=== PATIENT | female | born 1950 | race Caucasian/White ===

== ENCOUNTER 2018-04-27 10:27 | Inpatient (IN) | payer OTHER ==
--- OUTSIDE RECORDS SUMMARY | 2018-04-27 10:29 | XMS REPORT | Continuity of Care Document ---
:1950 Author Organization Interface Problems Problem Status Onset Classification Date Comments Source Date Reported Rectal Active 04/01/20 Problem 08/26/2017 Data Medical polyp<sup>1</zhang 15 migrated Group p> from [employer] on 04/21/15. UNK Active 03/29/20 [facility] [place] 787.99 Active 03/29/[address] Smoking Active 03/26/20 Problem 08/26/2017 Data Medical cessation 15 migrated Group education<sup>2 from [employer] </sup> [facility] on 04/21/15. Asthma Resolved Problem 08/26/2017 Medical Group COPD Active Problem 08/26/2017 Medical Group,[facility] Degenerative Active Problem 08/26/2017 Medical disc disease Group,[facility] Hypertension Active Problem 08/26/2017 Medical Group,[facility] Rectal mass Active Problem 08/26/2017 Medical Group,[facility] DIGESTVE SYST Active SYMP NEC [facility] Medications Medication Details Route Status Patient Ordering Order Source Instructions Provider Date Oxycodone 5 mg, Route: PO, Inactive Hydrochloride 5 Drug form: TAB, 2014 MG Oral Tablet ONCE, Dosing Weight 50, kg, Start date: 04/02/15 16:42:00, Stop date: 04/02/15 16:42:00 Xopenex 0.63 mg, 3 mL, No Longer Route: NEB, Drug Active 2014 form: SOLN, PRN, Dosing Weight 50, kg, PRN Respiratory Protocol, Start date: 04/02/15 15:37:00, Duration: 30 day, Stop date: 05/02/15 15:36:00Notes: SEE RT DOCUMENTATION (Same as:Xopenex) Non-Formulary Reglan 10 mg, Route: Inactive IVP, Drug form: 2014 INJ, ONCE, Dosing Weight 50, kg, Start date: 04/02/15 14:34:00, Stop date: 04/02/15 14:34:00 Acetaminophen 1 tab, Route: Inactive 325 MG / PO, Drug Form: 2014 [facility] Hydrocodone TAB, kg, Q6H, Bitartrate 10 MG PRN Pain, Start Oral Tablet date: 04/02/15 [[place] [address]] 14:06:00, Duration: 30 day, Stop date: 05/02/15 14:05:00 Ofirmev 1,000 mg, Route: Inactive IV, Drug form: 2014 [facility] INJ, ONCE, kg, PRN Pain, for > or=50 kg, Start date: 04/02/15 14:06:00 Naloxone 0.04 mg, Route: Inactive IVP, Q2MIN, 2014 [facility] Dosing Weight 50, kg, PRN Narcotic Reversal, Start date: 04/02/15 14:06:00, Duration: 8 doses or times, Stop date: Limited # of times Fentanyl 50 microgram, Inactive Route: IVP, 2014 [facility] Q5Min, Dosing Weight 50, kg, PRN Pain Score 7-10, Start date: 04/02/15 14:06:00, Duration: 2 doses or times, Stop date: Limited # of times Ketorolac 30 mg, Route: Inactive IVP, ONCE, 2014 [facility] Dosing Weight 50, kg, Start date: 04/02/15 14:06:00, Duration: 1 doses or times, Stop date: 04/02/15 14:06:00 Flumazenil 0.2 mg, Route: Inactive IVP, PRN, Dosing 2014 [facility] Weight 50, kg, PRN Benzodiazepine Reversal, Initial dose, Start date: 04/02/15 14:06:00, Duration: 30 day, Stop date: 05/02/15 14:05:00 Ondansetron 4 mg, Route: Inactive IVP, ONCE, 2014 [facility] Dosing Weight 50, kg, PRN Nausea & Vomiting, Start date: 04/02/15 14:06:00 Hydromorphone 0.3 mg, 0.3 mL, No Longer Route: IVP, Drug Active 2014 [facility] form: INJ, Q3H, Dosing Weight 50, kg, PRN Pain Score 4-6, Start date: 04/02/15 13:37:00, Duration: 30 day, Stop date: 05/02/15 13:36:00 Calcium Chloride 500 mL, Rate: 25 Inactive 0.0014 MEQ/ML / ml/hr, Infuse 2014 [facility] Potassium over: 20 hr, Chloride 0.004 Route: IV, MEQ/ML / Sodium Dosing Weight 50 Chloride 0.103 kg, Total MEQ/ML / Sodium Volume: 500, Lactate 0.028 Start date: MEQ/ML 04/02/15 Injectable 11:44:00, Solution Duration: 30 day, Stop date: 05/02/15 11:43:00 Metronidazole =500 mg, PO, Active 500 MG Oral Q8H, # 21 btl, 0 2014 Tablet [Flagyl] Refill(s) Acetaminophen 1 tab, PO, Q6H, Active 300 MG / Codeine PRN for pain, # 2014 Phosphate 30 MG 30 tab, 0 Oral Tablet Refill(s) [Tylenol with Codeine #3] Flonase 0.05 2 spray, NASAL, Active [facility] mg/inh nasal BID, # 16 gm, 0 2014 spray Refill(s) levocetirizine 5 5 mg=1 tab, PO, Active 04/02/ MH mg oral tablet QPM, # 30 tab, 1 2014 Refill(s) levocetirizine 5 5 mg=1 tab, PO, Active 04/02/ [facility] mg oral tablet QPM, # 30 tab, 1 2014 Refill(s) montelukast 10 10 mg=1 tab, PO, Active MH MG Oral Tablet Bedtime, # 30 2014 [Singulair] tab, 1 Refill(s) Roflumilast 0.5 500 microgram=1 Active 04/02/ MH MG Oral Tablet tab, PO, Daily, 2014 [Daliresp] 0 Refill(s) lisinopril 20 mg 20 mg=1 tab, PO, Active MH oral tablet Daily, # 90 tab, 2014 0 Refill(s) Symbicort 2 puff, Active 160/4.5 INHALATION, BID, 2014 inhalation # 10.2 gm, 0 aerosol with Refill(s) adapter tiotropium 0.018 18 microgram=1 Active 04/02[facility] MG/ACTUAT cap, INHALATION, 2014 [facility] Inhalant Powder Daily, Use two [Spiriva] inhalations of one capsule for each dose, # 90 cap, 1 Refill(s)Special Instructions: Use two inhalations of one capsule for each dose Flagyl 500 mg, 100 mL, Inactive Route: IVPB, 2014 [facility] Drug form: INJ, ONCE, kg, Start date: 04/02/15 9:25:00, Stop date: 04/02/15 9:25:00 Allergies, Adverse Reactions, Alerts Substance Category Reaction Severity Reaction Status Date Comments Source type Reported penicillins< Assertion Drug Active Data sup>1</sup> allergy 5 migrated Medical from [facility] on 04/16/15. Originally documented as PENICILLIN. macrolide Assertion Drug Active Data antibiotics< allergy 5 migrated Medical sup>2</sup> from [facility] on 04/16/15. Originally documented as MYCIN. tetracycline Assertion Drug Active Data s<sup>3</sup allergy 5 migrated Medical > from [facility] on 04/16/15. Originally documented as CYCLINES. cephalexin<s Assertion Drug Active Data up>4</sup> allergy 5 migrated Medical from [facility] on 04/17/15. Originally documented as KEFLEX. Keflex Assertion Drug Active allergy Medical Group E-Mycin Assertion Drug Active allergy [facility] penicillins Assertion Drug Active allergy [facility] tetracycline Assertion Drug Active s allergy [facility] Immunizations Immunization Date Given Site Status Last Updated Comments Source Results Order Name Results Value Reference Date Interpretation Comments Source Range CHEM PANEL Creatinine 0.7 mg/dL 0.5 - 1.4 04/02 [facility] CHEM PANEL Sodium Lvl 143 meq/L 135 - 145 04/02 [facility] CHEM PANEL Potassium 4.6 meq/L 3.5 - 5.1 04/02 [facility] CHEM PANEL eGFR 91 04/02 Result Comment: The eGFR is calculated using the CKD-EPI formula. In most young, healthy individuals the eGFR will be >90 mL/ min/1.73m2. The eGFR declines with age. An eGFR of 60-89 may be normal in MH mL/min/1.7 some populations, particularly the elderly, for whom the CKD-EPI formula has not been extensively validated. Use of the eGFR is not recommended in the following populations: [facility] 3m2 Individuals with unstable creatinine concentrations, including patients and those with serious co-morbid conditions. Patients with extremes in muscle mass or diet. The data above are obtained from the National Kidney Disease Education Program (NKDEP) which additionally recommends that when the eGFR is used in patients with extremes of body mass index for purposes of drug dosing, the eGFR should be multiplied by the estimated BMI. CHEM PANEL Calcium Lvl 8.9 mg/dL 8.5 - 10.5 04/02 [facility] CHEM PANEL Glucose Lvl 95 mg/dL 70 - 99 04/02 [facility] CHEM PANEL BUN 12 mg/dL 7 - 22 04/02 [facility] CHEM PANEL Chloride Lvl 105 meq/L 95 - 109 04/02 [facility] CHEM PANEL CO2 30 meq/L 24 - 32 04/02 [facility] CHEM PANEL AGAP 12.6 meq/L 10.0 - 04/02 20.0 [facility] HEMATOLOGY Hct 45.8 % 36.0 - 04/02 48.0 [facility] HEMATOLOGY Hgb 15.6 g/dL 12.0 - 04/02 16.0 [facility] TUMOR CEA 12.5 ng/mL 0.0 - 3.0 04/02 MARKERS [facility] URINE AND UA <=1.0 0.1 - 1.0 04/02 STOOL Urobilinogen mg/dL /2014 [facility] URINE AND UA Color Ltyellow 04/02 STOOL [facility] URINE AND UA pH 5.0 5.0 - 8.0 04/02 [facility] URINE AND UA Spec Grav 1.008 <=1.030 04/02 [facility] URINE AND UA Glucose Negative Negative 04/02 STOOL mg/dL mg/dL /2014 [facility] URINE AND UA Protein Negative Negative 04/02 STOOL mg/dL mg/dL /2014 [facility] URINE AND UA Turbidity Clear Clear 04/02 [facility] (04/02/15 9:34 AM) URINE AND UA WBC null 0 - 5 04/02 [facility] URINE AND UA Sq Epi Occasional Few /LPF 04/02 [facility]OOL /LPF /2014 [facility] URINE AND UA RBC null 0 - 2 04/02 STOOL [facility] URINE AND UA Ketones Negative Negative 04/02 STOOL mg/dL mg/dL /2014 [facility] URINE AND UA Blood Small Negative 04/02 STOOL [facility] *ABN* (04/02/15 9:34 AM) URINE AND UA Bili Negative Negative 04/02 STOOL [facility] *NA* (04/02/15 9:34 AM) URINE AND UA Leuk Est Negative Negative 04/02 STOOL [facility] (04/02/15 9:34 AM) URINE AND UA Nitrite Negative Negative 04/02 STOOL [facility] (04/02/15 9:34 AM) Vital Signs Vital Sign Value Date Comments Source Systolic (mm Hg) 118 04/02/2015 [facility] Diastolic (mm Hg) 49 04/02/2015 [facility] Systolic (mm Hg) 96 04/02/2015 [facility] Diastolic (mm Hg) 39 04/02/2015 [facility] Systolic (mm Hg) 114 04/02/2015 [facility] Diastolic (mm Hg) 47 04/02/2015 [facility] Respitory Rate 19 04/02/2015 [facility] Respitory Rate 18 04/02/2015 [facility] Respitory Rate 9 04/02/2015 [facility] Heart Rate 55 04/02/2015 [facility] Temperature Oral (F) 98.4 F 04/02/2015 [facility] Height 154.94 cm 04/02/2015 [facility] BMI Calculated 20.83 04/02/2015 [facility] Weight 50 04/02/2015 [facility] Encounters Location Location Encounter Encounter Reason Attending ADM DC Status Source Details Type Number For Provider Date Date Visit Outpatient [id number] [facility] OBS Day [id number] Theodoros 04/02 04/02 [facility] Surgery 0 Voloyiannis /2014 [facility] Outpatient [id number] THEODOROS 04/22 [facility]OYI[facility] [id number] THEODOROS 07/30 [facility]NIS [facility] [id number] THEODOROS 10/21 [facility]OYIANNIS [facility] Out[facility] [id number] THEODOROS 11/18 [facility]OLOYIANNIS [facility] Out[facility] [id number] THEODOROS 02/24 [facility]OLOYIAN [facility] [id number] THEODOROS 07/18 [facility]OY [facility] Out[facility] [id number] THEODOROS 08/18 [facility]OY [facility] Outpatient [id number] THEODOROS 08/18 [facility]OYIAN [facility] Out[facility] [id number] THEODOROS 08/23 [facility] 9 VOLOYIANNIS [facility] [id number] Nizar 08/23 08/23 Colorectal Pre-Reg 9 [facility] [place] Procedures Procedure Code Date Perfomer Comments Source Operation [id number] 04/02/2015 Medical Group Arthrotomy [id number] Medical Group Cataract surgery [id number] Medical Group Hysterectomy [id number] Medical Group Laparoscopic Kathryn [id number] Medical fundoplication using Group abdominal approach Tonsillectomy [id number] Medical Group Tubal ligation [id number] Medical Group Arthrotomy [id number] [facility] Hysterectomy [id number] [facility] Laparoscopic Kathryn [id number] [facility] fundoplication using abdominal approach Tonsillectomy [id number] [facility]
--- OUTSIDE RECORDS SUMMARY | 2018-04-27 10:29 | XMS REPORT | Clinical Summary ---
:1950 Author Organization [facility] Address [address] [place] [address] Care Team Providers Name Role Phone Levon Guido MD Primary Care Provider Allergies Active Allergy Reactions Severity Noted Date Comments Cephalexin 01/30/2017 Penicillins 01/30/2017 Current Medications Prescription Sig. Disp. Refills Start Date End Date Status DALIRESP 500 mcg 12/06/2016 Active tablet SPIRIVA WITH 12/23/2016 Active HANDIHALER 18 mcg per inhalation capsule montelukast 01/20/2017 Active (SINGULAIR) 10 mg tablet levocetirizine (XYZAL) 01/11/2017 Active 5 MG tablet predniSONE (DELTASONE) 01/29/2017 Active 10 mg tablet PROVENTIL HFA 90 11/15/2016 Active mcg/actuation inhaler SYMBICORT 80-4.5 11/19/2016 Active mcg/actuation inhaler potassium chloride Take 1 capsule 90 capsule 3 01/30/2017 01/30/2018 (MICRO-K) 10 MEQ CR (10 mEq total) capsuleIndications: by mouth Bilateral edema of daily. lower extremity, SOB (shortness of breath) furosemide (LASIX) 40 Take 1 tablet 90 tablet 3 01/30/2017 01/30/2018 mg tabletIndications: (40 mg total) Bilateral edema of by mouth lower extremity, SOB daily. (shortness of breath) verapamil extended Take 1 capsule 90 capsule 3 01/31/2017 01/31/2018 release (VERELAN) 120 (120 mg total) MG 24 hr by mouth capsuleIndications: daily. At Bilateral edema of night lower extremity, SOB (shortness of breath) Active Problems Problem Noted Date Bilateral edema of lower extremity 01/30/2017 Chest pressure 01/30/2017 PAD (peripheral artery disease) 01/30/2017 SOB (shortness of breath) 01/30/2017 Social History Tobacco Use Types Packs/Day Years Used Date Current Every Day Smoker Alcohol Use Drinks/Week oz/Week Comments Yes Sex Assigned at Date Recorded Not on file Last Filed Vital Signs Not on file Plan of Treatment Health Maintenance Due Date Last Done Comments BREAST CANCER SCREENING 1999 COLON CANCER SCREENING 1999 SHINGRIX VACCINE (#1) 1999 ZOSTER VACCINE 2009 PNEUMOCOCCAL POLYSACCHARIDE VACCINE AGE 65 AND OVER 2014 PNEUMOCOCCAL-13 2014 INFLUENZA VACCINE 04/17/2018 Results Not on fileafter 04/26/2017 Insurance Payer Benefit Plan / Group Subscriber ID Type Phone Address AETNA AETNA HMO,POS,EPO, MC/EC xxxxxxxxxx HMO
--- OUTSIDE RECORDS SUMMARY | 2018-04-27 10:30 | XMS REPORT | Summary of Care ---
:1950 Author Organization [facility] ColoRectal Surgery [facility] Address [address] [place] [address], [facility] [address] [place] [address]- Encounter HQ Marisol_brandon(FIN) [id number] Date(s): 08/23/17 - 08/23/17 [facility] ColoRectal Surgery [facility] [id number] [place] [address], [facility] [address] [place] [address] - [phone] Attending Physician: Carmen Hill MD Referring Physician: Olga Benítez MD Vital Signs No data available for this section Problem List Condition Effective Dates Status Health Status Informant Asthma(Confirmed) Resolved COPD(Confirmed) Active Degenerative disc disease(Confirmed) Active Hypertension(Confirmed) Active Rectal mass(Confirmed) Active Rectal polyp1 04/01/15 Active Smoking cessation education2 03/26/15 Active 1Data migrated from [employer] on 04/21/15.2Data migrated from [employer] on 04/21/15. Allergies, Adverse Reactions, Alerts Substance Reaction Severity Status penicillins1 Active macrolide antibiotics2 Active tetracyclines3 Active cephalexin4 Active Keflex Active E-Mycin Active 1Data migrated from [employer] on 04/16/15. Originally documented as PENICILLIN.2Data migrated from [employer] on 04/16/15. Originally documented as MYCIN.3Data migrated from [employer] on 04/16/15. Originally documented as CYCLINES.4Data migrated from [employer] on 04/17/15. Originally documented as KEFLEX. Medications No data available for this section Results No data available for this section Immunizations No data available for this section Procedures Procedure Date Related Diagnosis Body Site Operation 04/02/15 Arthrotomy Cataract surgery Hysterectomy Laparoscopic Kathryn fundoplication using abdominal approach Tonsillectomy Tubal ligation Social History Social History Type Response Alcohol Current, Type Beer, Wine. Frequency: Daily. Smoking Status Current every day smoker; Type: Cigarettes; Exposure to Tobacco Smoke Self; Cigarette Smoking Last 365 Days Yes; Reg Smoking Cessation Counseling Yes Assessment and Plan No data available for this section
--- OUTSIDE RECORDS SUMMARY | 2018-04-27 10:30 | XMS REPORT | Summary of Care ---
:1950 Author Organization [facility] Address [address] [place], [place] [address]- Encounter [facility] Chemar_brandon(FIN) [id number] Date(s): 04/02/15 - 04/02/15 [facility] [address] [place] [address]- Discharge Disposition: Home Attending Physician: Carmen Hill MD Referring Physician: Carmen Hill MD Vital Signs Most recent to oldest [Reference Range]: 1 2 3 Height 154.94 cm (04/02/15 9:26 AM) Most recent to oldest [Reference Range]: 1 2 3 Temperature Oral [96.4-99.1 DegF] 98.4 DegF (04/02/15 10:03 AM) Most recent to oldest 1 2 3 [Reference Range]: Blood Pressure [90-140/60-90 118/49 mmHg 96/39 mmHg 114/47 mmHg mmHg] (04/02/15 5:30 PM) (04/02/15 5:15 PM) (04/02/15 4:45 PM) Most recent to oldest 1 2 3 [Reference Range]: Respiratory Rate [14-20 BRMIN] 19 BRMIN 18 BRMIN 9 BRMIN (04/02/15 4:15 PM) (04/02/15 4:00 PM) *LOW* (04/02/15 3:45 PM) Most recent to oldest [Reference Range]: 1 2 3 Peripheral Pulse Rate [60-100 bpm] 55 bpm *LOW* (04/02/15 10:03 AM) Most recent to oldest [Reference Range]: 1 2 3 Weight 50 kg (04/02/15 9:26 AM) Most recent to oldest [Reference Range]: 1 2 3 Body Mass Index 20.83 m2 (04/02/15 9:26 AM) Problem List Condition Effective Dates Status Health Status Informant COPD(Confirmed) Active Degenerative disc disease(Confirmed) Active Hypertension(Confirmed) Active Rectal mass(Confirmed) Active Allergies, Adverse Reactions, Alerts Substance Reaction Severity Status E-Mycin Active Keflex Active penicillins Active tetracyclines Active Medications Daliresp 500 mcg oral tablet 500 microgram=1 tab, PO, Daily, 0 Refill(s) Start Date: 04/02/15 Status: OrderedfentaNYL 50 microgram, Route: IVP, Q5Min, Dosing Weight 50, kg, PRN Pain Score 7-10, Start date: 04/02/15 14:06:00, Duration: 2 doses or times, Stop date: Limited # of times Start Date: 04/02/15 Stop Date: 04/02/15 Status: DiscontinuedFlagyl 500 mg, 100 mL, Route: IVPB, Drug form: INJ, ONCE, kg, Start date: 04/02/15 9:25 :00, Stop date: 04/02/15 9:25:00 Start Date: 04/02/15 Stop Date: 04/02/15 Status: CompletedFlagyl 500 mg oral tablet =500 mg, PO, Q8H, # 21 btl, 0 Refill(s) Start Date: 04/02/15 Stop Date: 04/09/15 Status: OrderedFlonase 0.05 mg/inh nasal spray 2 spray, NASAL, BID, # 16 gm, 0 Refill(s) Start Date: 04/02/15 Status: Orderedflumazenil 0.2 mg, Route: IVP, PRN, Dosing Weight 50, kg, PRN Benzodiazepine Reversal, Initial dose, Start date: 04/02/15 14:06:00, Duration: 30 day, Stop date: 14:05:00 Start Date: 04/02/15 Stop Date: 04/02/15 Status: Discontinuedhydromorphone 0.3 mg, 0.3 mL, Route: IVP, Drug form: INJ, Q3H, Dosing Weight 50, kg, PRN Pain Score 4-6, Start date: 04/02/15 13:37:00, Duration: 30 day, Stop date: 05/02/15 13:36:00 Start Date: 04/02/15 Stop Date: 04/03/15 Status: DiscontinuedketOROLAC 30 mg, Route: IVP, ONCE, Dosing Weight 50, kg, Start date: 04/02/15 14:06:00, Duration: 1 doses or times, Stop date: 04/02/15 14:06:00 Start Date: 04/02/15 Stop Date: 04/02/15 Status: DiscontinuedLactated Ringers Injection IV 500 mL 500 mL, Rate: 25 ml/hr, Infuse over: 20 hr, Route: IV, Dosing Weight 50 kg, Total Volume: 500, Startdate: 04/02/15 11:44:00, Duration: 30 day, Stop date: 11:43:00 Start Date: 04/02/15 Stop Date: 04/02/15 Status: Discontinuedlevocetirizine 5 mg oral tablet 5 mg=1 tab, PO, QPM, # 30 tab, 1 Refill(s) Start Date: 04/02/15 Status: Orderedlevocetirizine 5 mg oral tablet 5 mg=1 tab, PO, QPM, # 30 tab, 1 Refill(s) Start Date: 04/02/15 Status: Orderedlisinopril 20 mg oral tablet 20 mg=1 tab, PO, Daily, # 90 tab, 0 Refill(s) Start Date: 04/02/15 Status: Orderednaloxone 0.04 mg, Route: IVP, Q2MIN, Dosing Weight 50, kg, PRN Narcotic Reversal, Start date: 04/02/15 14:06:00, Duration: 8 doses or times, Stop date: Limited # of times Start Date: 04/02/15 Stop Date: 04/02/15 Status: DiscontinuedNorco 10/325 oral tablet 1 tab, Route: PO, Drug Form: TAB, kg, Q6H, PRN Pain, Start date: 04/02/15 14:06: 00, Duration: 30 day, Stop date: 05/02/15 14:05:00 Start Date: 04/02/15 Stop Date: 04/02/15 Status: DiscontinuedOfirmev 1,000 mg, Route: IV, Drug form: INJ, ONCE, kg, PRN Pain, for > or=50 kg, Start date: 04/02/15 14:06:00 Start Date: 04/02/15 Stop Date: 04/02/15 Status: Completedondansetron 4 mg, Route: IVP, ONCE, Dosing Weight 50, kg, PRN Nausea & Vomiting, Start date: 04/02/15 14:06:00 Start Date: 04/02/15 Stop Date: 04/02/15 Status: CompletedoxyCODONE 5 mg immediate release 5 mg, Route: PO, Drug form: TAB, ONCE, Dosing Weight 50, kg, Start date: 16:42:00, Stop date: 04/02/15 16:42:00 Start Date: 04/02/15 Stop Date: 04/02/15 Status: CompletedReglan 10 mg, Route: IVP, Drug form: INJ, ONCE, Dosing Weight 50, kg, Start date: 04/02 14:34:00, Stop date: 04/02/15 14:34:00 Start Date: 04/02/15 Stop Date: 04/02/15 Status: CompletedSingulair 10 mg oral tablet 10 mg=1 tab, PO, Bedtime, # 30 tab, 1 Refill(s) Start Date: 04/02/15 Status: OrderedSpiriva 18 mcg inhalation capsule 18 microgram=1 cap, INHALATION, Daily, Use two inhalations of one capsule for each dose, # 90 cap, 1Refill(s) Special Instructions: Use two inhalations of one capsule for each dose Start Date: 04/02/15 Status: OrderedSymbicort 160/4.5 inhalation aerosol with adapter 2 puff, INHALATION, BID, # 10.2 gm, 0 Refill(s) Start Date: 04/02/15 Status: OrderedTylenol with Codeine #3 oral tablet 1 tab, PO, Q6H, PRN for pain, # 30 tab, 0 Refill(s) Start Date: 04/02/15 Stop Date: 04/12/15 Status: OrderedXopenex 0.63 mg, 3 mL, Route: NEB, Drug form: SOLN, PRN, Dosing Weight 50, kg, PRN Respiratory Protocol, Start date: 04/02/15 15:37:00, Duration: 30 day, Stop date : 05/02/15 15:36:00 Notes: SEE RT DOCUMENTATION (Same as:Xopenex)Non-Formulary Start Date: 04/02/15 Stop Date: 04/03/15 Status: Discontinued Results ELECTROLYTES Most recent to oldest [Reference Range]: 1 Sodium Lvl [135-145 mEq/L] 143 mEq/L (04/02/15 9:34 AM) Potassium Lvl [3.5-5.1 mEq/L] 4.6 mEq/L (04/02/15 9:34 AM) Chloride Lvl [95-109 mEq/L] 105 mEq/L (04/02/15 9:34 AM) CO2 [24-32 mEq/L] 30 mEq/L (04/02/15 9:34 AM) AGAP [10.0-20.0 mEq/L] 12.6 mEq/L (04/02/15 9:34 AM) CHEM PANEL Most recent to oldest [Reference Range]: 1 Creatinine Lvl [0.5-1.4 mg/dL] 0.7 mg/dL (04/02/15 9:34 AM) eGFR 91 mL/min/1.73m2 1 *NA* (04/02/15 9:34 AM) BUN [7-22 mg/dL] 12 mg/dL (04/02/15 9:34 AM) Glucose Lvl [70-99 mg/dL] 95 mg/dL (04/02/15 9:34 AM) Calcium Lvl [8.5-10.5 mg/dL] 8.9 mg/dL (04/02/15 9:34 AM) 1Result Comment: The eGFR is calculated using the CKD-EPI formula. In most young , healthy individualsthe eGFR will be >90 mL/min/1.73m2. The eGFR declines with age. An eGFR of 60-89 may be normal in some populations, particularly the elderly, for whom the CKD-EPI formula has not been extensively validated. Use of the eGFR is not recommended in the following populations: Individuals with unstable creatinine concentrations, including patients and those with serious co-morbid conditions. Patients with extremes in muscle mass or diet. The data above are obtained from the National Kidney Disease Education Program ( NKDEP) which additionally recommends that when the eGFR is used in patients with extremes of body mass index for purposesof drug dosing, the eGFR should be multiplied by the estimated BMI.URINE AND STOOL Most recent to oldest [Reference Range]: 1 UA Turbidity [Clear] Clear (04/02/15 9:34 AM) UA Color Ltyellow *NA* (04/02/15 9:34 AM) UA pH [5.0-8.0] 5.0 (04/02/15 9:34 AM) UA Spec Grav [<=1.030] 1.008 (04/02/15 9:34 AM) UA Glucose [Negative mg/dL] Negative mg/dL *NA* (04/02/15 9:34 AM) UA Blood [Negative] Small *ABN* (04/02/15 9:34 AM) UA Ketones [Negative mg/dL] Negative mg/dL *NA* (04/02/15 9:34 AM) UA Protein [Negative mg/dL] Negative mg/dL (04/02/15 9:34 AM) UA Urobilinogen [0.1-1.0 mg/dL] <=1.0 mg/dL *NA* (04/02/15 9:34 AM) UA Bili [Negative] Negative *NA* (04/02/15 9:34 AM) UA Leuk Est [Negative] Negative (04/02/15 9:34 AM) UA Nitrite [Negative] Negative (04/02/15 9:34 AM) UA WBC [0-5 /HPF] <1 /HPF (04/02/15 9:34 AM) UA RBC [0-2 /HPF] <1 /HPF (04/02/15 9:34 AM) UA Sq Epi [Few /LPF] Occasional /LPF *NA* (04/02/15 9:34 AM) HEMATOLOGY Most recent to oldest [Reference Range]: 1 Hgb [12.0-16.0 g/dL] 15.6 g/dL (04/02/15 9:34 AM) Hct [36.0-48.0 %] 45.8 % (04/02/15 9:34 AM) TUMOR MARKERS Most recent to oldest [Reference Range]: 1 CEA [0.0-3.0 ng/mL] 12.5 ng/mL *HI* (04/02/15 9:34 AM) Immunizations No data available for this section Procedures Procedure Date Related Diagnosis Body Site Arthrotomy Hysterectomy Laparoscopic Kathryn fundoplication using abdominal approach Tonsillectomy Social History Social History Type Response Alcohol Current, Type Beer, Wine. Frequency: Daily. Smoking Status Former smoker; Exposure to Tobacco Smoke None; Cigarette Smoking Last 365 Days Yes; Reg Smoking Cessation Counseling No Assessment and Plan Extracted from: Title: Re: Called for tooth Author: Fredo Story MD Date: 04/02/15 Called to the bedside to acess the patient. Per the PACU nurse when the patient woke up from anesthesia it was noticed that the cap for her tooth had come off. After speaking to the anesthesia provider in the room there did not appear to be any airway difficulity. The procedure had to get converted from minimally invasive to open. During the conversion the airway got changed from a LMA to an ETT. Per the nurse anestist in the room the airway was easy. The believe the patient might of bitten down on the oral airway at the end of surgery. I spoke with the patient about the incident and the family has been spoken to as well. Extracted from: Title: Clinical Document Author: Carmen Hill MD Date: 04/02/15 History of Present Illness Referring MD: Dr. 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 The patient is a 65 year old female kindly referred by Dr. Benítezfor surgical consultation for rectal mass. 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 Other polyps positive for TVA x2, and hyperplastic x2. Reports noticing bleeding, mucusy drain age for the last several months but denies pain, diarrhea, constipation, change in bowel habits, weight loss PMH significant for pulmonary disease/COPD-she is currently a smoker Past Medical History: Asthma Colon Polyps Diverticulitis High Blood Pressure COPD Past Surgical History: Back surgery Left Knee Surgery Tonsillectomy Hysterectomy Tubal Ligation D&C Social History: Alcohol Use - yes Drug Use - no Smoking History: Patient currently smokes every day. 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 ............Madeleine Carranza March 26, 2015 1:38 PM Height: 64 inches (162.56 cm) Weight: 112 pounds (50.91 kg) BMI: 19.29 kg/m2 Temp: 98.4 degrees F (36.89 degrees C) oral Pulse rate: 72 / minute Pulse rhythm: regular BP sittin / 60 (right arm) Cuff size: regular Vitals Entered By: Madeleine Carranza (March 26, 2015 1:39 PM) Review Of Systems General: Denies chills, fever, weight loss, weight gain, loss of appetite Eyes: Denies vision loss, retina problems Ears/Nose/Throat: Denies ringing in ears, hearing problems, congestion, dental problems, hoarseness, difficulty swallowing, recent sore throat Cardiovascular: Denies irregular heartbeat, chest pain, heart murmur, abnormal heart valve Pulmonary: Denies productive cough with sputum, shortness of breath, wheezing Genitourinary: Denies frequent urination, blood in urine, urinary incontinence , difficulty urinating, pneumaturia, fecaluria, vaginal discharge Abdominal/GI: Complains of bloody or dark stools; Denies nausea/vomiting, diarrhea, constipation, indigestion, abdominal pain, incontinence of stool, mucus with stools Musculoskeletal: Denies back pain, joint pain, joint swelling Skin: Denies skin rashes, skin itching Neurologic: Denies numbness, weakness, headaches, memory loss, seizures, fainting/blackouts, migraines Psychiatric: Denies anxiety, depression, suicidal thoughts Endocrine: Denies heat/cold intolerance, excessive hunger, excessive thirst, excessive urination, hormonal abnormalities Liver: Denies jaundice Hematologic/Lymphatic: Denies abnormal bleeding, abnormal bruising, enlarged lymph glands Physical Exam Vital Signs - Entered by GENEVIEVE Ht: 64ins Wt: 112lbs Temp: 98.4 deg F. Temp site: oral Pulse rate: 72 Rhythm: regular BP: 140/60 BMI: 19.29 General: well developed, well nourished, in no acute distress Head/Neck: normocephalic, neck supple, no palpable thyroid masses Eyes: extra ocular muscles intact, sclera anicteric, pupils within normal limits Ears/Nose/Throat: no abnormalities noted Cardiovascular: regular rate and rhythm, no murmurs or gallop, no peripheral edema Chest: no chest deformities, rises symmetrically, no palpable lesions Respiratory: rises symmetrically, clear to ascultation, no wheezes or ronchi Genitourinary: normal genitalia Abdomen: soft, non tender, non distended, no organomegaly, no masses, no hernias, no rebound, no peritonitis Anorectal: Digital rectal exam reveals normal sphincter tone and normal squeeze tone. Inspection and Rigid proctoscopy reveals a 4x4cm left anterolateral rectal wall villous mass ~11cm from the anal verge, po steriorly to a Louie's valve with a 7mm flat adjacent rectal polyp. Extremities normal gait, muscle tone and range of motion, no cyanosis or tenderness Skin: normal color, turgor, no rash or cyanosis Lymphatic: no palpable lymph nodes Neurologic: normal sensation and strength, normal gait and speech, moves all extremities Psychiatric: alert and oriented, normal judgment, mood and affect Impression & Recommendations: Problem # 1: BLEEDING, RECTAL/ANAL (ICD-569.3) (UGT91-Z10.5) Assessment: Comment Only Orders: Office Consult - Comp/Moderate Complex - 60 min - [id number] ([id number]) PROCTOSGMDSC RIGID DX W/WO ANOSCOPY - [id number] ([id number]) Problem # 2: RECTAL POLYPS (ICD-211.4) (RHO66-T59.8) Assessment: Comment Only Orders: Office Consult - Comp/Moderate Complex - 60 min - [id number] ([id number]) PROCTOSGMDSC RIGID DX W/WO ANOSCOPY - [id number] ([id number]) Problem # 3: SMOKER/TOBACCO USE DISORDER-SMOKING CESSATION DISCUSSED (ICD- 305.1) (LGP98-R19.200) Assessment: Comment Only Recommend to proceed with full thickness transanal excision of the rectal mass with single port assisted laparoscopy via the rectum (TAMIS) and she strongly desires to proceed. She undestands that deped kailee on the final pathology she may require further treatment. smoking cessation discussed extensively The patient agrees to proceed with the procedure. Risks, benefits and alternatives to the procedure were discussed in great detail. The patient will schedule the procedure in the near future. All que stions were answered to the patient's satisfaction pulmonary clearance Total office visit, face to face consultation, coordination of care, and exam/ procedure >60min. Orders: Office Consult - Comp/Moderate Complex - 60 min - [id number] ([id number]) PROCTOSGMDSC RIGID DX W/WO ANOSCOPY - [id number] ([id number]) Medications Added to Medication List This Visit: 1) Lisinopril 20 Mg Tabs (Lisinopril) 2) Daliresp Tabs (Roflumilast tabs) 3) Spiriva Handihaler Caps (Tiotropium bromide monohydrate caps) 4) Symbicort Aero (Budesonide-formoterol fumarate aero) 5) Singulair Tabs (Montelukast sodium tabs) 6) Flonase Susp (Fluticasone propionate susp) 7) Levocetirizine Dihydrochloride Tabs (Levocetirizine dihydrochloride tabs)
[2018-04-27] MEDS ORDERED: NA CHLORIDE 0.9% 500 ML ONE ×2 (10:45→11:39)
[2018-04-27] MEDS ORDERED: MAGNESIUM SULFATE 1 gm IVPB 1 GM/100 ML BAG IV ONE (10:45)
[2018-04-27] MEDS ORDERED: LEVALBUTEROL 1.25 MG/3 ML NEB ONE ×2 (10:45→12:15)
[2018-04-27] MEDS ORDERED: dilTIAZem HCl 50 MG/10 ML VIAL IV ONE (10:51)
[2018-04-27 10:54] LABS: RBC Red Blood Cell Count 3.98 M/uL (3.86-4.86)
[2018-04-27 10:55] LABS: Absolute Lymphocytes (CBC) 2.4 K/uL (0.7-4.9); Absolute Monocytes 1.3 K/uL (0.1-1.3); Absolute Neutrophil 12.1 K/uL (1.8-8.0); Basophils % 0.3 % (0-1.3); Eosinophils % 0.5 % (0-4.4); Hematocrit 37.7 % (36.0-45.0); Lymphocytes % 14.8 % (15.3-44.8); MCH 32.6 pg (27.0-35.0); MCV 94.7 fL (80-100); MPV 8.2 fL (7.6-11.3); Monocytes % 8.3 % (3.3-12.3)
[2018-04-27] MEDS ORDERED: IPRATROPIUM BROM 0.5MG/2.5ML ONE (10:55)
--- NOTE | 2018-04-27 11:18 | RAD REPORT ---
EXAM DESCRIPTION: RAD - Chest Single View - 04/27/2018 11:11 am CLINICAL HISTORY: Cough;Dyspnea Chest pain. COMPARISON: Chest Pa And Lat (2 Views) dated 06/25/2017; Chest Single View dated 05/08/2017; Chest Pa And Lat (2 Views) dated 02/13/2017; Chest Pa And Lat (2 Views) dated 11/10/2016 FINDINGS: Portable technique limits examination quality. The lungs are emphysematous but grossly clear of acute infiltrate. The heart is mildly enlarged in si ze. No displaced fractures. IMPRESSION: Moderate COPD.
[2018-04-27 11:31] LABS: BUN Blood Urea Nitrogen 17 mg/dL (7-18); Bicarbonate > 45 mmol/L (21-32); CKMB Creatine Kinase MB 5.4 ng/mL (0.3-3.6); Creatine Phosphokinase 49 U/L (26-192); Glucose Level 135 mg/dL (74-106); Magnesium 2.1 mg/dL (1.8-2.4); NT PRO-BNP 1580 pg/mL (<125); Potassium 3.9 mmol/L (3.5-5.1); Sodium Level 131 mmol/L (136-145)
[2018-04-27] MEDS ORDERED: DILTIAZEM HCL 60 MG TAB PO SCH (12:00)
--- NOTE | 2018-04-27 12:05 | EDPHYS ---
Physician Documentation [facility] Name: Julia Andrews Age: 68 yrs Sex: Female : 1950 Arrival Date: 04/27/2018 Time: 10:29 Bed 4 Private MD: ED Physician Manuel Banuelos HPI: 04/27 10:31 This 68 yrs old Female presents to ER via Unassigned with complaints of rn Breathing Difficulty, Chest Pain. 10:31 The patient has shortness of breath at rest. Onset: The symptoms/episode began/occurred rn 3 day(s) ago. Duration: The symptoms are continuous. The patient's shortness of breath is aggravated by nothing, is alleviated by nothing. Severity of symptoms: At their worst the symptoms were moderate in the emergency department the symptoms are unchanged. The patient has experienced similar episodes in the past. Reports sob for 3 days, intermittent cough with yellow and white sputum, no fever, intermittent chest pressure since yesterday, HR in 140s per EMS, given solumedrol and albuterol/atrovent treatments, no abd pain, on home O2 continuous.. Historical: - Allergies: 10:33 Cephalexin Monohydrate; hb 10:33 erythromycin base; hb 10:33 PENICILLINS; hb 10:33 TETRACYCLINES; hb 11:19 Keflex; sv - Home Meds: 10:37 verapamil 120 mg Oral TbER 1 tab once daily [Active]; Daliresp 500 mcg oral tab 1 tab hb once daily [Active]; Symbicort inhalation inhalation 2 times per day [Active]; Spiriva with HandiHaler 18 mcg inhalation CpDv 1 cap once daily [Active]; Claritin 10 mg Oral tab 1 tab once daily [Active]; prednisone 10 mg Oral tab once daily [Active]; Proventil Inhl [Active]; spironolactone 25 mg Oral tab 1 tab once daily [Active]; - PMHx: 10:33 COPD; Hypertension; hb - PSHx: 10:33 Hysterectomy; Knee surgery; Disc surgery; Tonsillectomy; hb - Immunization history:: Adult Immunizations up to date. - Family history:: not pertinent. - Ebola Screening: : No symptoms or risks identified at this time. - Social history:: Smoking status: Patient uses tobacco products, denies chronic smoking, but will smoke occasionally. - Hospitalizations: : No recent hospitalization is reported. ROS: 10:31 Constitutional: Negative for fever, chills, and weight loss, Eyes: Negative for injury, rn pain, redness, and discharge, Neck: Negative for injury, pain, and swelling, Cardiovascular: Negative for chest pain, and edema, Respiratory: Negative for pleuritic chest pain Abdomen/GI: Negative for abdominal pain, nausea, vomiting, diarrhea, and constipation, MS/Extremity: Negative for injury and deformity, Skin: Negative for injury, rash, and discoloration, Neuro: Negative for headache, numbness, tingling, and seizure. Exam: 10:31 Constitutional: Thin female with respiratory distress, speaking 3-4 word sentences rn Head/Face: Normocephalic, atraumatic. Eyes: Pupils equal round and reactive to light, extra-ocular motions intact. Lids and lashes normal. Conjunctiva and sclera are non-icteric and not injected. Cornea within normal limits. Periorbital areas with no swelling, redness, or edema. Neck: Trachea midline, no thyromegaly or masses palpated, and no cervical lymphadenopathy. Supple, full range of motion without nuchal rigidity, or vertebral point tenderness. No Meningismus. Cardiovascular: tachycardic, regular, no murmur Respiratory: + tachypnea with retractions and poor inspiratory air movement Abdomen/GI: Soft, non-tender, with normal bowel sounds. No distension or tympany. No guarding or rebound. No evidence of tenderness throughout. MS/ Extremity: Pulses equal, no cyanosis. Neurovascular intact. Full, normal range of motion. Equal circumference. Neuro: Awake and alert, GCS 15, oriented to person, place, and situation. Cranial nerves II-XII grossly intact. Motor strength 5/5 in all extremities. Sensory grossly intact. Vital Signs: 10:27 BP 192 / 127; Pulse 148; Resp 36; Temp 97.2; Pulse Ox 99% on Nebulizer Mask; sv 10:45 BP 179 / 112; Pulse 150; Resp 36; Pulse Ox 98% on BiPAP; sv 10:51 BP 154 / 96; Pulse 110; Resp 31; Pulse Ox 98% on BiPAP; sv 11:20 Pulse 150; Resp 30; Pulse Ox 99% on 40% BiPAP; sv 11:30 BP 178 / 102; Pulse 149; Resp 28; Pulse Ox 99% on 40% BiPAP; sv 12:01 BP 230 / 189; Pulse 103; Resp 29; Pulse Ox 92% on 40% BiPAP; sv 12:13 BP 142 / 103; Pulse 116; Resp 28; Pulse Ox 87% on 40% BiPAP; sv 12:30 BP 175 / 104; Pulse 117; Resp 27; Pulse Ox 90% on 60% BiPAP; sv 13:00 BP 147 / 105; Pulse 119; Resp 33; Pulse Ox 88% on 60% BiPAP; sv 13:30 BP 161 / 80; Pulse 109; Resp 27; Pulse Ox 92% on 60% BiPAP; sv 13:36 Weight 45.36 kg; sv 11:20 20/10, rate-16 sv 13:30 15/10 rate-16 sv Procedures: 13:15 Central Line: the site was prepped with Betadine, in sterile fashion, a triple lumen rn catheter was inserted, in the right femoral vein, in 1 attempts. placement was verified, by blood return, the site was dressed with Tegaderm, using sterile technique, the patient tolerated the procedure, well. MDM: 10:29 Patient medically screened. rn 10:46 ED course: Given 10mg cardizem by EMS without any change.. rn 12:02 Differential diagnosis: Anemia Bronchitis CHF exacerbation, Chronic Obstructive rn Pulmonary Disease Myocardial Infarction pneumonia, Pneumothorax pulmonary edema, reactive airway disease. Data reviewed: vital signs, nurses notes, lab test result(s), EKG, radiologic studies, plain films, and as a result, I will admit patient. Counseling: I had a detailed discussion with the patient and/or guardian regarding: the historical points, exam findings, and any diagnostic results supporting the discharge/admit diagnosis, lab results, radiology results, the need for further work-up and treatment in the hospital. Response to treatment: the patient's symptoms have mildly improved after treatment, and as a result, I will admit patient. Admission orders: after a detailed discussion of the patient's condition and case, the admit orders are written by me. ED course: Pt improved, HR down to 109, no current chest pain, elevated trop and BNP likely rate related, no known heart problems, CXR with COPD, no infiltrate or pneumonia, will admit to ICU under dr mabry, sees dr portillo. . 04/27 10:31 Order name: Blood Culture Adult (2) rn 08/11 10:31 Order name: BMP; Complete Time: 11:41 rn 04/27 10:31 Order name: CBC with Diff; Complete Time: 11:31 rn 04/27 10:31 Order name: Ckmb; Complete Time: 11:41 rn 04/27 10:31 Order name: CPK; Complete Time: 11:41 rn 04/27 10:31 Order name: Magnesium; Complete Time: 11:41 rn 04/27 10:31 Order name: NT PRO-BNP; Complete Time: 11:41 rn 04/27 10:31 Order name: Troponin (emerg Dept Use Only); Complete Time: 11:31 rn 04/27 10:31 Order name: Procalcitonin; Complete Time: 11:31 rn 04/27 12:19 Order name: ABG rn 04/27 12:53 Order name: Basic Metabolic Panel EDSC 04/27 12:53 Order name: Basic Metabolic Panel EDSC 04/27 12:53 Order name: Basic Metabolic Panel EDSC 04/27 12:53 Order name: Basic Metabolic Panel EDSC 04/27 12:53 Order name: Basic Metabolic Panel EDSC 04/27 12:53 Order name: Basic Metabolic Panel EDSC 04/27 12:53 Order name: CKMB Creatine Kinase MB EDSC 04/27 12:53 Order name: CKMB Creatine Kinase MB EDSC 04/27 12:53 Order name: CKMB Creatine Kinase MB EDSC 04/27 12:53 Order name: CKMB Creatine Kinase MB EDSC 04/27 12:53 Order name: Creatine Phosphokinase EDSC 04/27 12:53 Order name: Creatine Phosphokinase EDSC 04/27 12:53 Order name: Creatine Phosphokinase EDMS 04/27 12:53 Order name: Creatine Phosphokinase EDMS 04/27 12:53 Order name: Lipid Profile EDMS 04/27 12:53 Order name: Lipid Profile EDMS 04/27 12:53 Order name: Magnesium EDMS 04/27 12:53 Order name: Magnesium EDMS 04/27 12:53 Order name: Magnesium EDMS 04/27 12:53 Order name: Blood Culture EDMS 04/27 10:31 Order name: XRAY CXR (1 view); Complete Time: 11:31 rn 04/27 10:31 Order name: EKG; Complete Time: 10:32 rn 04/27 10:31 Order name: Cardiac monitoring; Complete Time: 10:42 rn 04/27 10:31 Order name: EKG - Nurse/Tech; Complete Time: 10:42 rn 04/27 10:31 Order name: IV Saline Lock; Complete Time: 10:42 rn 04/27 10:31 Order name: Labs collected and sent; Complete Time: 10:42 rn 04/27 10:31 Order name: O2 Per Protocol; Complete Time: 10:42 rn 04/27 10:31 Order name: O2 Sat Monitoring; Complete Time: 10:42 rn 04/27 10:31 Order name: BIPAP rn 04/27 12:13 Order name: Chest Single View XRAY; Complete Time: 13:15 eb 04/27 12:14 Order name: EKG; Complete Time: 12:15 04/27 12:14 Order name: EKG - Nurse/Tech; Complete Time: 12:14 04/27 12:54 Order name: CONS Pharmacy Consult [facility] 04/27 12:54 Order name: CONS Physician Consult [facility] 04/27 12:54 Order name: CONS Physician Consult [facility] 04/27 12:54 Order name: Respiratory Therapy Consult [facility] 04/27 12:54 Order name: Heart Healthy [facility] 04/27 12:54 Order name: Echo with Doppler [facility] 04/27 12:54 Order name: T4 Free [facility] 04/27 12:54 Order name: Thyroid Stimulating Hormone [facility] 04/27 12:54 Order name: Troponin I [facility] Administered Medications: 10:45 Drug: Xopenex (3) 1.25 mg Route: Inhalation; sv 10:45 Drug: NS 0.9% 500 ml Route: IV; Rate: bolus; Site: left antecubital; sv 11:15 Follow up: Response: No adverse reaction; IV Status: Completed infusion; IV Intake: sv 500ml 10:45 Drug: Magnesium Sulfate 1 grams Route: IVPB; Infused Over: 1 hrs; Site: left sv antecubital; 11:45 Follow up: Response: No adverse reaction; IV Status: Completed infusion; IV Intake: sv 100ml 10:45 Drug: NS 0.9% 500 ml Route: IV; Rate: bolus; Site: left antecubital; sv 11:15 Follow up: Response: No adverse reaction; IV Status: Completed infusion; IV Intake: sv 500ml 10:50 Drug: Cardizem 20 mg Route: IVP; Site: left antecubital; sv 11:02 Follow up: Response: No adverse reaction sv 11:18 Drug: Cardizem 60 mg Route: PO; sv 12:00 Follow up: Response: No adverse reaction sv 11:35 Drug: Cardizem 25 mg Route: IVP; Site: left antecubital; sv 12:00 Follow up: Response: No adverse reaction sv 12:15 Drug: Xopenex 1.25 mg Route: Inhalation; hb 13:13 Drug: amiodarone 150 mg Volume: 100 ml; Route: IVPB; Infused Over: 10 mins; Site: right sv femoral; 13:23 Follow up: Response: No adverse reaction; IV Status: Completed infusion; IV Intake: sv 100ml 13:39 Drug: amiodarone 900 mg, D5W 500 ml Route: IVPB; Rate: 1 mg/min; Site: right femoral; sv 14:14 Follow up: Response: No adverse reaction; IV Status: Infusion continued upon admission sv Disposition: 12:02 Critical Care:. rn Disposition: 04/27/18 12:04 Hospitalization ordered by Efrain Mabry for Inpatient Admission. Preliminary diagnosis are Chronic obstructive pulmonary disease with (acute) exacerbation, Unspecified atrial flutter, Dyspnea, unspecified. - Bed requested for Intensive Care Unit. - Status is Inpatient Admission. eb - Condition is Fair. - Problem is new. - Symptoms have improved. UTI on Admission? No Critical care time excluding procedures: 12:02 Critical care time: Bedside Care: 25 minutes, Consultation: 5 minutes, Family rn Intervention: 5 minutes. Total time: 35 minutes Signatures: Dispatcher [employer] Kadi Singh RN RN Manuel Banuelos MD MD rn Baxter, Heather, RN RN Cherri Hess Corrections: (The following items were deleted from the chart) 13:27 12:04 Hospitalization Ordered by Efrain Mabry DO for Inpatient Admission. Preliminary eb diagnosis is Chronic obstructive pulmonary disease with (acute) exacerbation; Unspecified atrial flutter; Dyspnea, unspecified. Bed requested for Intensive Care Unit. Status is Inpatient Admission. Condition is Fair. Problem is new. Symptoms have improved. UTI on Admission? No. rn 14:31 13:27 04/27/2018 12:04 Hospitalization Ordered by Efrain Mabry DO for Inpatient eb Admission. Preliminary diagnosis is Chronic obstructive pulmonary disease with (acute) exacerbation; Unspecified atrial flutter; Dyspnea, unspecified. Bed requested for Intensive Care Unit. Status is Inpatient Admission. Condition is Fair. Problem is new. Symptoms have improved. UTI on Admission? No. eb
--- NOTE | 2018-04-27 12:05 | ER ---
Nurse's Notes [facility] Name: Julia Andrews Age: 68 yrs Sex: Female : 1950 Arrival Date: 04/27/2018 Time: 10:29 Bed 4 Private MD: Diagnosis: Chronic obstructive pulmonary disease with (acute) exacerbation;Unspecified atrial flutter;Dyspnea, unspecified Presentation: 04/27 10:25 Presenting complaint: EMS states: called out for respiratory distress, pt uses home sv oxygen at 4L per [place]. EMS stated bilateral wheezing, A\T\A 1:1 given, Solumedrol 125 mg IVP, Cardizem 10 mg IVP d/t Afib w/RVR. BP 187/108 HR-140s. Pt stated she's been having intermittent CP for 2 days. 10:25 Acuity: ROXANNA 2 sv 10:25 Transition of care: patient was not received from another setting of care. Onset of sv symptoms was April 27, 2018. Risk Assessment: Do you want to hurt yourself or someone else? Patient reports no desire to harm self or others. Initial Sepsis Screen: Does the patient meet any 2 criteria? RR > 20 per min. HR > 90 bpm. Yes Does the patient have a suspected source of infection? Yes: Productive cough/pneumonia. Care prior to arrival: Medication(s) given: Albuterol Neb x 1, Atrovent Neb x 1, IV initiated. 20 GA, in the left antecubital area, Med neb given. Oxygen administered. via a nebulizer mask. 10:25 Method Of Arrival: EMS: [facility] sv Triage Assessment: 10:25 General: Appears distressed, Behavior is calm, cooperative. Pain: Complains of pain in sv chest Pain currently is 3 out of 10 on a pain scale. Pain began 2-3 days ago. Is intermittent. EENT: No signs and/or symptoms were reported regarding the EENT system. Neuro: Level of Consciousness is awake, alert, obeys commands, Oriented to person, place, time, situation, Moves all extremities. Speech short responses, trying to get words out. Cardiovascular: Patient's skin is warm and dry. Rhythm is atrial fibrillation with rapid ventricular response. Respiratory: Reports shortness of breath at rest on exertion since today labored breathing Airway is patent Respiratory effort is labored, pursed lip, with retractions, shallow, Respiratory pattern is symmetrical, tachypnea Onset: The symptoms/episode began/occurred this morning, the patient has severe shortness of breath. Derm: Skin is normal. Musculoskeletal: Range of motion: intact in all extremities. Historical: - Allergies: 10:33 Cephalexin Monohydrate; hb 10:33 erythromycin base; hb 10:33 PENICILLINS; hb 10:33 TETRACYCLINES; hb 11:19 Keflex; sv - Home Meds: 10:37 verapamil 120 mg Oral TbER 1 tab once daily [Active]; Daliresp 500 mcg oral tab 1 tab hb once daily [Active]; Symbicort inhalation inhalation 2 times per day [Active]; Spiriva with HandiHaler 18 mcg inhalation CpDv 1 cap once daily [Active]; Claritin 10 mg Oral tab 1 tab once daily [Active]; prednisone 10 mg Oral tab once daily [Active]; Proventil Inhl [Active]; spironolactone 25 mg Oral tab 1 tab once daily [Active]; - PMHx: 10:33 COPD; Hypertension; hb - PSHx: 10:33 Hysterectomy; Knee surgery; Disc surgery; Tonsillectomy; hb - Immunization history:: Adult Immunizations up to date. - Family history:: not pertinent. - Ebola Screening: : No symptoms or risks identified at this time. - Social history:: Smoking status: Patient uses tobacco products, denies chronic smoking, but will smoke occasionally. - Hospitalizations: : No recent hospitalization is reported. Screenin:37 Abuse screen: Denies threats or abuse. Denies injuries from another. Nutritional hb screening: No deficits noted. Tuberculosis screening: No symptoms or risk factors identified. Fall Risk Total Carroll Fall Scale indicates Low Risk Score (25-44 pts). Fall prevention measures have been instituted. Side Rails Up X 2 Frequent Obs/Assesments occuring As available Patient and Family Educated on Fall Prevention Program and strategies. Assessment: 11:24 General: Appears in no apparent distress. uncomfortable, Behavior is calm, cooperative. sv Pain: Denies pain. Neuro: Level of Consciousness is awake, alert, obeys commands, Oriented to person, place, time, situation, Moves all extremities. Cardiovascular: Patient's skin is warm and dry. Rhythm is atrial fibrillation with rapid ventricular response. Respiratory: Airway is patent Respiratory effort is labored, Respiratory pattern is symmetrical, tachypnea. 12:14 Reassessment: SpO2 79-83% on BIPAP 40% FIO2, Dr. Banuelos notified. hb 12:16 Reassessment: and at bedside evaluating pt at this time. sg 12:50 Reassessment: Patient and/or family updated on plan of care and expected duration. Pain sv level reassessed. Patient is alert, oriented x 3, equal unlabored respirations, skin warm/dry/pink. Cardiovascular: Rhythm is atrial flutter 2:1. Respiratory: Respiratory effort is even, labored, Respiratory pattern is symmetrical, tachypnea. 13:36 Reassessment: Patient appears in no apparent distress at this time. Patient and/or sv family updated on plan of care and expected duration. Pain level reassessed. Patient is alert, oriented x 3, equal unlabored respirations, skin warm/dry/pink. 13:39 Respiratory: Respiratory effort is even, Respiratory pattern is symmetrical, tachypnea. sv Vital Signs: 10:27 BP 192 / 127; Pulse 148; Resp 36; Temp 97.2; Pulse Ox 99% on Nebulizer Mask; sv 10:45 BP 179 / 112; Pulse 150; Resp 36; Pulse Ox 98% on BiPAP; sv 10:51 BP 154 / 96; Pulse 110; Resp 31; Pulse Ox 98% on BiPAP; sv 11:20 Pulse 150; Resp 30; Pulse Ox 99% on 40% BiPAP; sv 11:30 BP 178 / 102; Pulse 149; Resp 28; Pulse Ox 99% on 40% BiPAP; sv 12:01 BP 230 / 189; Pulse 103; Resp 29; Pulse Ox 92% on 40% BiPAP; sv 12:13 BP 142 / 103; Pulse 116; Resp 28; Pulse Ox 87% on 40% BiPAP; sv 12:30 BP 175 / 104; Pulse 117; Resp 27; Pulse Ox 90% on 60% BiPAP; sv 13:00 BP 147 / 105; Pulse 119; Resp 33; Pulse Ox 88% on 60% BiPAP; sv 13:30 BP 161 / 80; Pulse 109; Resp 27; Pulse Ox 92% on 60% BiPAP; sv 13:36 Weight 45.36 kg; sv 11:20 20/10, rate-16 sv 13:30 15/10 rate-16 sv ED Course: 10:25 Patient has correct armband on for positive identification. Placed in gown. Bed in low sv position. Side rails up X2. budget examiner on. Pulse ox on. NIBP on. Warm blanket given. Head of bed elevated. 10:25 Maintain EMS IV. Dressing intact. Good blood return noted. Site clean \T\ dry. Gauge \T\ sv site: 20G L AC. 10:29 Patient arrived in ED. rn 10:29 Manuel Banuelos MD is Attending Physician. rn 10:33 Triage completed. sv 10:37 Arm band placed on right wrist. hb 10:42 BIPAP Sent. sv 10:45 First set of blood cultures drawn by me. sg 10:53 Kadi Baig, SELENA is Primary Nurse. sv 11:00 Second set of blood cultures drawn by me. Inserted saline lock: 20 gauge in right sg forearm, using aseptic technique. Blood collected. 11:10 X-ray completed. Portable x-ray completed in exam room. Patient tolerated procedure ml well. 11:11 XRAY CXR (1 view) In Process Unspecified. EDMS 11:51 Barnes cath inserted, using sterile technique, 16 Fr., by me, balloon inflated, to sv gravity drainage, urine specimen collected. 12:04 Efrain Villafuerte DO is Hospitalizing Provider. rn 12:15 EKG done, by ED staff, reviewed by Manuel Banuelos MD. em1 12:45 Chest Single View XRAY In Process Unspecified. EDMS 13:05 Assisted provider with central line placement. Set up central line tray. Triple lumen sv line placed in right femoral. Line placed by Manuel Banuelos MD Placement verified by blood return, Dressed with Tegaderm, Patient tolerated well. Before procedure, did Practitioner(s) obtain informed consent? Yes. Patient \T\ family education about procedure, CLABSI prevention and S/S of infection? Yes. Time-out/Briefing performed prior to start of procedure? Yes. Was handwashing/sanitizing done immediately prior to procedure? Yes. Was patient positioned to in a way to prevent air embolism? Yes. Was procedure site sterilized? Yes, with chlorhexidine. Was the site allowed to dry? Yes. Was local anesthetic and/or sedation utilized? Yes. During the procedure, did the Practitioner(s) maintain a sterile field? Yes. Were unused ports clamped during insertion? Yes. Was a 2nd qualified MD obtained after 3 unsuccessful insertion attempts? Yes. Was blood aspirated from each lumen? Yes. After the procedure, did the Practitioner(s) clean the site and apply a sterile dressing? Yes. 13:32 Troponin I Sent. sv 14:14 Patient admitted, IV remains in place. intact. sv Administered Medications: 10:45 Drug: Xopenex (3) 1.25 mg Route: Inhalation; sv 10:45 Drug: NS 0.9% 500 ml Route: IV; Rate: bolus; Site: left antecubital; sv 11:15 Follow up: Response: No adverse reaction; IV Status: Completed infusion; IV Intake: sv 500ml 10:45 Drug: Magnesium Sulfate 1 grams Route: IVPB; Infused Over: 1 hrs; Site: left sv antecubital; 11:45 Follow up: Response: No adverse reaction; IV Status: Completed infusion; IV Intake: sv 100ml 10:45 Drug: NS 0.9% 500 ml Route: IV; Rate: bolus; Site: left antecubital; sv 11:15 Follow up: Response: No adverse reaction; IV Status: Completed infusion; IV Intake: sv 500ml 10:50 Drug: Cardizem 20 mg Route: IVP; Site: left antecubital; sv 11:02 Follow up: Response: No adverse reaction sv 11:18 Drug: Cardizem 60 mg Route: PO; sv 12:00 Follow up: Response: No adverse reaction sv 11:35 Drug: Cardizem 25 mg Route: IVP; Site: left antecubital; sv 12:00 Follow up: Response: No adverse reaction sv 12:15 Drug: Xopenex 1.25 mg Route: Inhalation; hb 13:13 Drug: amiodarone 150 mg Volume: 100 ml; Route: IVPB; Infused Over: 10 mins; Site: right sv femoral; 13:23 Follow up: Response: No adverse reaction; IV Status: Completed infusion; IV Intake: sv 100ml 13:39 Drug: amiodarone 900 mg, D5W 500 ml Route: IVPB; Rate: 1 mg/min; Site: right femoral; sv 14:14 Follow up: Response: No adverse reaction; IV Status: Infusion continued upon admission sv Intake: 11:15 IV: 500ml; Total: 500ml. sv 11:15 IV: 500ml; Total: 1000ml. sv 11:26 PO: 200ml (Water); Total: 1200ml. sv 11:45 IV: 100ml; Total: 1300ml. sv 13:23 IV: 100ml; Total: 1400ml. sv Output: 14:14 Urine: 200ml (Barnes); Total: 200ml. sv Outcome: 12:04 Decision to Hospitalize by Provider. rn 14:14 Admitted to ICU accompanied by nurse, accompanied by tech, via stretcher, room 7, with sv oxygen, on monitor, with chart, Report called to Angeles WALTERS 14:14 Condition: stable 14:14 Instructed on the need for admit. 14:31 Patient left the ED. eb Signatures: Dispatcher [employer] Kadi Singh RN RN sv Gay, Steven RN Ela Post Roman, MD MD rn Martinez, Toni 1 Gwen Quintana RN RN hb Botello, Elizabeth eb Corrections: (The following items were deleted from the chart) 14:08 10:47 Cardizem 25 mg IVP in left antecubital sv sv 15:44 10:25 Respiratory: Reports shortness of breath at rest on exertion since today labored sv breathing Airway is patent Respiratory effort is labored, pursed lip, with retractions, Respiratory pattern is symmetrical, tachypnea Onset: The symptoms/episode began/occurred this morning, the patient has severe shortness of breath sv
[2018-04-27] MEDS ORDERED: FAMOTIDINE 20 MG/2 ML VIAL IV ONE (12:33)
[2018-04-27] MEDS ORDERED: AMIODARONE HCL 150 MG in D5W 100 ML IV STA (12:37)
[2018-04-27] MEDS ORDERED: ACETAMINOPHEN 650MG/RECT SUPP PR PRN (12:37)
[2018-04-27] MEDS ORDERED: SODIUM CHLORIDE 0.9% 10ML INJ IV PRN (12:37)
[2018-04-27] MEDS ORDERED: ONDANSETRON 4 MG/2 ML VIAL IV PRN (12:37)
[2018-04-27 12:50] LABS: Arterial Blood Carboxyhemoglob 3.3 % (0-1.5); Blood Gas Oxyhemoglobin 84.2 % (94-97)
--- NOTE | 2018-04-27 12:55 | RAD REPORT ---
EXAM DESCRIPTION: RAD - Chest Single View - 04/27/2018 12:44 pm CLINICAL HISTORY: DYSPNEA Chest pain. COMPARISON: Chest Single View dated 04/27/2018; Chest Pa And Lat (2 Views) dated 06/25/2017; Chest Sin gle View dated 05/08/2017; Chest Pa And Lat (2 Views) dated 02/13/2017 FINDINGS: Portable technique limits examination quality. Mild emphysematous changes are present. The heart is mildly enlarged in size. No displaced fractures. IMPRESSION: Mild COPD.
[2018-04-27] MEDS ORDERED: AMIODARONE HCL 150 MG/3 ML INJ IV ONE (12:59)
[2018-04-27] MEDS ORDERED: AMIODARONE IN DEXTROSE,ISO-OSM 360 MG/200 ML BAG IV ONE (12:59)
[2018-04-27] MEDS ORDERED: NA CHLORIDE 0.9% 1,000 ML IV SCH (13:00)
[2018-04-27] MEDS ORDERED: NA CHLORIDE 0.9% 100 ML IV ONE (13:02)
--- NOTE | 2018-04-27 13:03 | EKG ---
Test Date: 2018-04-27 Test Time: 11:54:14 Shipping/Receiving Manager: AMIRA MEASUREMENT RESULTS: Intervals: Rate: 99 MI: QRSD: 84 QT: 262 QTc: 336 [place]: P: 87 MI: QRS: 65 T: 73 INTERPRETIVE STATEMENTS: Atrial flutter with variable AV block Nonspecific ST and T wave abnormality Abnormal ECG Compared to ECG 04/27/2018 10:36:20 No significant changes Electronically Signed On 04-27-18 13:02:43 CDT by Doroteo Varghese
--- NOTE | 2018-04-27 13:03 | EKG ---
Test Date: 2018-04-27 Test Time: 10:36:20 Men'S Swim Coach: BLAISE MEASUREMENT RESULTS: Intervals: Rate: 148 ND: QRSD: 78 QT: 226 QTc: 354 [place]: P: 258 ND: QRS: 67 T: 81 INTERPRETIVE STATEMENTS: Atrial flutter with 2:[address] and T wave abnormality Abnormal ECG Compared to ECG 05/08/2017 14:53:14 ST (T wave) deviation now present Sinus rhythm no longer present Atrial premature complex(es) no longer present Electronically Signed On 04-27-18 13:02:54 CDT by Doroteo Varghese
--- NOTE | 2018-04-27 13:05 | P.HP ---
Certification for Inpatient Patient admitted to: Inpatient With expected LOS: >2 Midnights Patient will require the following post-hospital care: Other Practitioner: I am a practitioner with admitting privileges, knowledge of patient current condition, hospital course, and medical plan of care. Services: Services provided to patient in accordance with Admission requirements found in Title 42 Section 412.3 of the Code of Federal Regulations Patient History Date of Service: 04/27/18 Primary Care Provider: Dr. Domingo; Pulmonary-Dr Funk Reason for admission: SOB History of Present Illness: 68 yo CF presented to the ER with shortness of breath and chest pain. Patient with significant history of End Stage COPD-oxygen dependent, HTN, Alcohol/Tobacco abuse. She reports that the shortness of breath started last night. She was not feeling well. Chest pain was across her chest. She got worse this am with worsening shortness of breath. She felt that she could not breath. She is using 2 l/min oxygen at home. She called EMS. EMS noted atrial flutter. She was given Solumedrol, Albuterol and Cardizem in the field. In the ER her rate was still high. It was as high as 150s. She was given more Cardizem in the ER. She was started on BIPAP. CXR showed severe COPD. No infiltrate noted. Lab showed NA-131, K-3.9, CK-49, CKMB-5.4, and Trop 0.05. BNP elevated at 1580 and procal of 0.07. I was asked to admit the patient to the ICU for further care. When I saw the patient she was in serious condition. Adjustments to BIPAP made a slight improvement in the ER. She admits to smoking and drinking about 4 beers daily. She is taking her medication. She has noted a cough with congestion. She remains stable. I have spoken to cardiology and pulmonary concerning her admission. She will get a central line placed. She will start Lovenox for atrial flutter, Amiodarone for atrial flutter, IV steroid/BIPAP/ breathing treatments to continue. Allergies cephalexin monohydrate [From Keflex] Allergy (Verified 11/12/16 15:39) Nausea/Vomiting erythromycin base Allergy (Verified 11/10/16 18:17) Hives/Rash Penicillins Allergy (Verified 11/10/16 18:17) Hives/Rash tetracycline Allergy (Verified 11/10/16 18:17) Hives/Rash Tetracyclines Allergy (Verified 05/09/17 08:56) Unknown Erythromycin Allergy (Uncoded 11/10/16 18:17) Hives/Rash Home medications list reviewed: Yes Home Medications: Levocetirizine Dihydrochloride [Xyzal] 5 mg PO BEDTIME 11/10/14 Montelukast [Singulair*] 10 mg PO BEDTIME 11/10/14 Roflumilast [Daliresp*] 500 mcg PO DAILY 11/10/14 Tiotropium [Spiriva Handihaler*] 18 mcg IH DAILY 11/10/14 Albuterol Sulfate [Proventil Hfa] 2 puff IH Q4HP PRN 11/10/16 Budesonide/Formoterol Fumarate [Symbicort 160-4.5 Mcg Inhaler] 2 puff IH SEECOM 11/10/16 Losartan Potassium [Cozaar] 50 mg PO DAILY 11/10/16 Guaifen W/Codeine Syrup [ROBITUSSIN A-C Syrup*] 10 ml PO BID PRN #150 ml Cetirizine HCl [Zyrtec*] 5 mg PO DAILY 05/08/17 Methocarbamol [Robaxin*] 2 tab PO DAILY PRN 05/08/17 Verapamil HCl [Verapamil ER] 120 mg PO DAILY 05/08/17 Folic Acid 1 mg PO DAILY #30 tablet 05/10/17 Thiamine HCl [Vitamin B-1*] 100 mg PO DAILY #30 05/10/17 levoFLOXacin [Levaquin*] 500 mg PO DAILY #7 tab 05/10/17 predniSONE [Deltasone*] 10 mg PO BID #20 tab 05/10/17 - Past Medical/Surgical History Diabetic: No -: HTN -: End stage COPD, Oxygen dependent -: Arthritis -: History of colon cancer -: GERD -: Alcohol abuse -: Tobacco abuse -: Tonsillectomy -: Hysterectomy -: Knee surgery -: Back surgery -: Colon mass removal -: Cataract surgery Psychosocial/ Personal History: She lives with . She has children. - Family History Father -: Heart disease, Stroke, Cancer, Seizures Notes: Lung CA Brother -: Hypertension, Cancer Notes: Lung CA Mother -: Lung disease Notes: COPD - Social History Smoking Status: Heavy Tobacco smoker (>10 cigarettes/day) Counseled patient to stop smoking for: less than 10 minutes Smoking therapy provided: No Patient receptive to therapy: No Alcohol use: Yes CD- Drugs: No Caffeine use: Yes Place of Residence: Home Review of Systems General: Weakness, As per HPI Eyes: Unremarkable ENT: As per HPI Respiratory: Cough, Shortness of Breath, SOB with Excertion, Wheezing, As per HPI Cardiovascular: Chest Pain, Paroxysmal Noc. Dyspnea, Edema, As per HPI Gastrointestinal: Nausea, As per HPI Genitourinary: Unremarkable Musculoskeletal: Unremarkable Integumentary: Unremarkable Neurological: As per HPI Lymphatics: Unremarkable Physical Examination - Physical Exam General: Alert, Oriented x3, Cooperative, Mild distress, Other (patient on BIPAP. HR around 113, RR around 30) HEENT: Atraumatic, Normocephalic, Other (dry mucous membranes. ) Neck: Supple Respiratory: Diminished (bilateral with poor air movement), Expiratory wheezes Cardiovascular: Irregular heart rate/rhythm (Atrial flutter with rate about 115) Gastrointestinal: Normal bowel sounds, Soft and benign, Non-distended, No tenderness, No masses, No rebound, No guarding, Other (Patient very thin) Musculoskeletal: No tenderness, No warmth Integumentary: Tenderness/swelling (edema to the lower ext, 1-2 plus) Neurological: Normal speech, Normal strength at 5/5 x4 extr, Normal tone, Normal affect Lymphatics: No axilla or inguinal lymphadenopathy - Studies Laboratory Data (last 24 hrs) 04/27/18 10:30: WBC 15.9 H, Hgb 13.0, Hct 37.7, Plt Count 232 04/27/18 10:30: Sodium 131 L, Potassium 3.9, BUN 17, Creatinine 0.50 L, Glucose 135 H, Magnesium 2.1 Assessment and Plan - Problems (Diagnosis) (1) COPD (chronic obstructive pulmonary disease) Current Visit: Yes Status: Acute Plan: Patient with COPD exacerbation upon acute on chronic resp. failure with hypoxia and hypercapnea. Will continue with BIPAP. Will need to monitor closely. Will try to maintain sats above 88%. I have spoke to Pulmonary concerning her care. If her condition declines she may require intubation. Advance directives addressed. She is unsure for now and would like decide later. Will continue with Cardiac care. Qualifiers: COPD type: COPD with acute exacerbation Qualified Code(s): J44.1 - Chronic obstructive pulmonary disease with (acute) exacerbation (2) Atrial flutter with rapid ventricular response Current Visit: Yes Status: Acute Plan: Patient with Atrial flutter. Case discussed with Cardiology-Dr Varghese. Will start Amiodarone IV drip. Bolus to be given in the ER. Will also start Lovenox 1 mg/kg sc BID. Will need to monitor closely. There appears to be no history of atrial fibrillation or flutter in the past. (3) CHF (congestive heart failure) Current Visit: Yes Status: Suspected Plan: Suspect Acute on chronic diastolic CHF. Will start Lasix 20 mg IV BID. Will need to monitor this closely. Will get ECHO. Cardiology consulted. Qualifiers: Heart failure type: diastolic Heart failure chronicity: acute on chronic Qualified Code(s): I50.33 - Acute on chronic diastolic (congestive) heart failure (4) Hyponatremia Current Visit: Yes Status: Acute Plan: Will monitor closely. Maybe related to her CHF (5) HTN (hypertension) Current Visit: Yes Status: Chronic Plan: Will hold Verapamil since she will be on Amiodarone. Will provide Hydralazine if BP elevated. Cardiology to further address. No Calcium channel or beta blockers for now. Qualifiers: Hypertension type: essential hypertension Qualified Code(s): I10 - Essential (primary) hypertension (6) GERD (gastroesophageal reflux disease) Current Visit: Yes Status: Chronic Plan: Will start PPI IV Qualifiers: Esophagitis presence: esophagitis presence not specified Qualified Code(s) : K21.9 - Gastro-esophageal reflux disease without esophagitis (7) Tobacco abuse Current Visit: Yes Status: Chronic Plan: May need nicotine patch. (8) Alcohol abuse Current Visit: Yes Status: Acute Plan: She admits 4 beers per night. Will check urine drug screen and alcohol level. Will start Thiamine and Folic acid IV. (9) Acute respiratory failure with hypoxia and hypercapnia Onset Date: 05/09/17 Current Visit: No Status: Acute Plan: Continue as above. Pulmonary is aware of patient. Will continue with BiPAP/ Xopenex/Atrovent/IV steroids. Maintain oxygen sats above 88%. If she continues to decline she may require intubation. Will recheck ABG in 3 hours. (10) Elevated troponin Onset Date: 05/09/17 Current Visit: No Status: Acute Plan: Likely stress from her SOB/COPD/Atrial flutter. Will monitor. Cardiology is aware of patient. Will order ECHO. Discharge Plan: Home Plan to discharge in: Greater than 2 days - Advance Directives Does patient have a Living Will: No Does patient have a Durable POA for Healthcare: No - Code Status/Comfort Care Code Status Assessed: Yes (Patient has not decided on Advance directives. She wants more time to think) Time Spent Managing Pts Care (In Minutes): 65
[2018-04-27] MEDS ORDERED: AMIODARONE HCL 450 MG in D5W 241 ML IV SCH (14:00)
[2018-04-27 14:01] LABS: Thyroid Stimulating Hormone 0.43 uIU/mL (0.36-3.74)
[2018-04-27] MEDS: FOLIC ACID 1 MG in NA CHLORIDE 0.9% 50 ML IV SCH (14:45)
[2018-04-27] MEDS: ENOXAPARIN 60 MG/0.6 ML SQ SCH ×2 (14:45→20:28)
[2018-04-27] MEDS ORDERED: Levofloxacin500mg IV 500 MG/100 ML BAG IV SCH (15:00)
[2018-04-27 15:30] LABS: CKMB Creatine Kinase MB 6.1 ng/mL (0.3-3.6)
[2018-04-27 16:31] LABS: Arterial Blood Carboxyhemoglob 3.6 % (0-1.5); Blood Gas Oxyhemoglobin 88.1 % (94-97)
[2018-04-27 17:00] LABS: Urine Appearance CLEAR; Urine Bilirubin NEGATIVE (NEG); Urine Blood 2+ (NEG); Urine Color YELLOW; Urine Glucose NEGATIVE (NEG); Urine Protein 1+ (NEG); Urine Specific Gravity 1.015 (1.005-1.030); Urine pH 5.5 (5.0-7.0)
[2018-04-27 17:10] LABS: Urine Microscopic Reflex ORDER UMIC
[2018-04-27 17:14] LABS: Urine Bacteria <20 /HPF (<20); Urine Culture Reflex Order NOT NEEDED; Urine Mucus 1+ /HPF (NONE SEEN)
--- NOTE | 2018-04-27 17:15 | CON ---
History Of Present Illness: Mrs. Andrews is 68. She has been in the hospital with COPD for about 4 h ours. When she was picked up she was found to be in atrial flutter. Her heart rate was about 150 be ats per minute. ENT has administered Cardizem. She is on verapamil constantly. She has severe COPD . She is a regular patient of Dr. Funk and takes a lot of lung medicines. Before this hospitali zation she has not been in atrial fibrillation before or atrial flutter. Medications: Home medications have been Spiriva, Daliresp, albuterol, budesonide, formoterol, verapa mil, prednisone, spironolactone, and loratadine. Her verapamil was 120 mg once a day, and at this po int, since she is on amiodarone, we will stop verapamil, diltiazem, probably need to stop beta blocke rs as well. The patient is not known to have CAD but is high risk for CAD. She has severe obstructi ve lung disease, COPD, is a heavy cigarette smoker still. The only cardiac testing we have on her ar e EKGs, all showed sinus rhythm before this and an echocardiogram in 2014 had showed normal ejection fraction. No significant abnormalities. Physical Examination: General: The patient is somnolent, but arousable. Lungs: There are bronchial type breath sounds th roughout. No wheezes or crackles. Heart: Reveals an irregularly irregular rhythm, but it is going about 85 to 100 beats per minute. B lood pressure is 105/60. Extremities: Trace edema, distal pulses diminished, but palpable. Her EKG shows atrial flutter with variable response. It is a very low amplitude flutter wave, so I a m not sure if it is really the right atrial circular rhythm that is common with flutter. If amiodaro ne has not affected a reversion to sinus rhythm by tomorrow, we will do a cardioversion. We will pancho e her n.p.o. after midnight. She is on IV amiodarone, as such we should not also give medicines like digoxin, beta blockers, diltiazem or verap connor. RISHABH/KRISTY Voice ID: [id number] Report ID: [id number]
[2018-04-27 17:21] LABS: Barbiturates NEGATIVE (NEGATIVE); Benzodiazepines NEGATIVE (NEGATIVE); Cocaine NEGATIVE (NEGATIVE); METHAMPHETAM NEGATIVE (NEGATIVE); Methadone NEGATIVE (NEGATIVE); Opiates NEGATIVE (NEGATIVE); Phencyclidine NEGATIVE (NEGATIVE); THC Cannibis NEGATIVE (NEGATIVE)
[2018-04-27] MEDS: FUROSEMIDE 20 MG/ 2ML VIAL IV SCH (17:33)
[2018-04-27] MEDS: METHYLPREDNISOLONE 125 MG INJ IV SCH ×2 (17:33→23:54)
[2018-04-27] MEDS: ARFORMOTEROL TARTRATE 15 MCG/2 ML VIAL.NEB NEB SCH (19:43)
[2018-04-27] MEDS ORDERED: KCL 20 MEQ/100 mL IVPB 20 MEQ/100 ML BAG IV SCH (21:00)
[2018-04-28] MEDS: IPRATROPIUM BROM 0.5MG/2.5ML NEB PRN ×2 (00:44→08:11)
[2018-04-28] MEDS: LEVALBUTEROL 1.25 MG/3 ML NEB NEB PRN ×3 (00:44→19:45)
[2018-04-28] MEDS: AMIODARONE HCL 450 MG in D5W 241 ML IV SCH ×3 (01:42→20:50)
[2018-04-28 05:47] LABS: Absolute Lymphocytes (CBC) 0.1 K/uL (0.7-4.9); Absolute Monocytes 0.2 K/uL (0.1-1.3); Absolute Neutrophil 7.1 K/uL (1.8-8.0); Basophils % 0.1 % (0-1.3); Hematocrit 35.9 % (36.0-45.0); Lymphocytes % 1.9 % (15.3-44.8); MCH 32.5 pg (27.0-35.0); MCV 94.7 fL (80-100); MPV 9.5 fL (7.6-11.3); Monocytes % 2.1 % (3.3-12.3)
[2018-04-28 05:53] LABS: BUN Blood Urea Nitrogen 16 mg/dL (7-18); Glucose Level 116 mg/dL (74-106); HDL Cholesterol 95 mg/dL (40-60); LDL Cholesterol, Calculated 84 (<130); Magnesium 2.1 mg/dL (1.8-2.4); Potassium 3.9 mmol/L (3.5-5.1); Sodium Level 133 mmol/L (136-145)
[2018-04-28 06:01] LABS: Bicarbonate 43 mmol/L (21-32)
[2018-04-28] MEDS: METHYLPREDNISOLONE 125 MG INJ IV SCH ×4 (06:17→23:42)
[2018-04-28] MEDS ORDERED: KCL 20 MEQ/100 mL IVPB 20 MEQ/100 ML BAG IV SCH (07:00)
--- NOTE | 2018-04-28 07:20 | RAD REPORT ---
EXAM DESCRIPTION: RAD - Chest Single View - 04/28/2018 6:10 am CLINICAL HISTORY: COPD, shortness of breath COMPARISON: April 27 TECHNIQUE: AP portable chest image was obtained 0551 hours . FINDINGS: No new mass or consolidation. Hyper expanded lung perez and interstitial fibrotic pattern are stable. Mild cardiomegaly is present similar to comparison. Upper lobe vasculature is similar to comparison. No measurable pleural effusion and no pneumothorax. No gross bony abnormality seen. No a cute aortic findings suspected. IMPRESSION: Underlying COPD findings are present with no new or progressive lung parenchymal process . Mild cardiomegaly similar to comparison.
--- NOTE | 2018-04-28 07:23 | P.PN ---
Subjective Date of Service: 04/28/18 Primary Care Provider: Dr. Domingo; Pulmonary-Dr Funk Chief Complaint: SOB Subjective: Other (Patient appears slightly improved. Patient on BiPAP.) Physical Examination - Vital Signs Temperature: 98.4 F Blood Pressure: 141/82 Pulse: 94 Respirations: 21 Pulse Ox (%): 92 - Physical Exam General: Alert, Oriented x3, Cooperative, Other (Patient on BiPAP.) HEENT: Atraumatic Neck: Supple Respiratory: Expiratory wheezes (Bilateral), Other (Poor inspiration and expiration) Cardiovascular: Irregular heart rate/rhythm (Atrial fibrillation rate less than 100) Gastrointestinal: Normal bowel sounds, Soft and benign, Non-distended, No tenderness, No masses, No rebound, No guarding Musculoskeletal: No erythema, No tenderness, No warmth Integumentary: No erythema, No warmth, No cyanosis, Tenderness/swelling ( Swelling to the lower extremities improved.) Neurological: Normal speech, Normal strength at 5/5 x4 extr, Normal tone, Normal affect - Studies Laboratory Data (last 24 hrs) 04/27/18 10:30: WBC 15.9 H, Hgb 13.0, Hct 37.7, Plt Count 232 04/27/18 10:30: Sodium 131 L, Potassium 3.9, BUN 17, Creatinine 0.50 L, Glucose 135 H, Magnesium 2.1 Medications List Reviewed: Yes Assessment & Plan - Problems (Diagnosis) (1) COPD (chronic obstructive pulmonary disease) Current Visit: Yes Status: Acute Plan: Patient with acute on chronic resp. failure with hypoxia and hypercapnea with notable history of end-stage COPD on chronic oxygen at home. Will continue with BiPAP. Will try to wean off. Patient on IV steroids, COPD treatment. Await further recommendations from pulmonology. Advanced directives address with patient. Patient desires to be full code. Patient still with atrial fibrillation. She had converted to normal rhythm but reconverted to AFib last night. Patient on amiodarone drip. If this continues cardiology plans for cardioversion today. Qualifiers: COPD type: COPD with acute exacerbation Qualified Code(s): J44.1 - Chronic obstructive pulmonary disease with (acute) exacerbation (2) Atrial flutter with rapid ventricular response Current Visit: Yes Status: Acute Plan: Patient with Atrial fib/flutter. Patient currently on amiodarone drip. Patient on Lovenox 1 milligram/kilogram subcu b.i.d.. Patient had converted to normal sinus rhythm but reconverted to AFib. If this continues cardiology plans for cardioversion today. Patient no longer taking calcium channel loretta. Cardiology recommends no beta-loretta or digoxin at this time. (3) CHF (congestive heart failure) Current Visit: Yes Status: Suspected Plan: Suspect Acute on chronic diastolic CHF. Will start Lasix 20 mg IV BID. Will need to monitor this closely. Will get ECHO. Cardiology consulted. Qualifiers: Heart failure type: diastolic Heart failure chronicity: acute on chronic Qualified Code(s): I50.33 - Acute on chronic diastolic (congestive) heart failure (4) Hyponatremia Current Visit: Yes Status: Acute Plan: Will monitor closely. Maybe related to her CHF, this has improved (5) HTN (hypertension) Current Visit: Yes Status: Chronic Plan: Will hold Verapamil since she will be on Amiodarone. Will provide Hydralazine if BP elevated. Cardiology to further address. No Calcium channel or beta blockers for now. Qualifiers: Hypertension type: essential hypertension Qualified Code(s): I10 - Essential (primary) hypertension (6) GERD (gastroesophageal reflux disease) Current Visit: Yes Status: Chronic Plan: Will continue with PPI IV Qualifiers: Esophagitis presence: esophagitis presence not specified Qualified Code(s) : K21.9 - Gastro-esophageal reflux disease without esophagitis (7) Tobacco abuse Current Visit: Yes Status: Chronic Plan: May need nicotine patch. (8) Alcohol abuse Current Visit: Yes Status: Acute Plan: She admits 4 beers per night. Will check urine drug screen and alcohol level. Will start Thiamine and Folic acid IV. (9) Acute respiratory failure with hypoxia and hypercapnia Onset Date: 05/09/17 Current Visit: No Status: Acute Plan: Continue as above. Pulmonary is aware of patient. Will continue with BiPAP/ Xopenex/Atrovent/IV steroids. Maintain oxygen sats above 88%. Patient continues on BiPAP. Will try to wean off. Patient desires to be full code. Patient empirically on antibiotic therapy. Patient appears to have end-stage COPD. Will discuss with pulmonology about plan of care. (10) Elevated troponin Onset Date: 05/09/17 Current Visit: No Status: Acute Plan: Likely stress from her SOB/COPD/Atrial flutter. Will monitor. Cardiology is aware of patient. Will order ECHO. Discharge Plan: Other (Home versus long-term acute care facility) Plan to discharge in: Greater than 2 days - Code Status/Comfort Care Code Status Assessed: Yes (Advanced directives readdress. Patient desires to be full code.) Code Status: Full Code Time Spent Managing Pts Care (In Minutes): 55
[2018-04-28] MEDS: ARFORMOTEROL TARTRATE 15 MCG/2 ML VIAL.NEB NEB SCH ×2 (08:11→19:45)
[2018-04-28] MEDS: ENOXAPARIN 60 MG/0.6 ML SQ SCH ×2 (08:58→20:52)
[2018-04-28] MEDS: FUROSEMIDE 20 MG/ 2ML VIAL IV SCH ×2 (08:59→17:37)
[2018-04-28] MEDS: ROFLUMILAST 500 MCG TABLET PO SCH (08:59)
[2018-04-28] MEDS: PANTOPRAZOLE 40 MG INJ IVP SCH (08:59)
[2018-04-28] MEDS ORDERED: THIAMINE 200 MG/2 ML INJ IVP SCH (09:00)
[2018-04-28 09:23] LABS: Blood Morphology Comment NOT SEEN (NOT SEEN); Platelet Estimate ADEQ
--- NOTE | 2018-04-28 09:47 | P.CNS ---
Date of Consult: 04/28/18 Primary Care Provider: Dr. Domingo; Pulmonary-Dr Funk Chief Complaint: SOB History of Present Illness: Patient is 68 years of age with a history of COPD has been worse over the past week complaining of shortness of breath chest congestion admitted with a atrial fibrillation. Patient was treated outpatient with steroids and antibiotic currently on BiPAP denies any cough sputum or hemoptysis no chest pain admitted with new onset of AFib compliant with her bronchodilators patient has some swelling of her lower extremities Allergies cephalexin monohydrate [From Keflex] Allergy (Verified 11/12/16 15:39) Nausea/Vomiting erythromycin base Allergy (Verified 11/10/16 18:17) Hives/Rash Penicillins Allergy (Verified 11/10/16 18:17) Hives/Rash tetracycline Allergy (Verified 11/10/16 18:17) Hives/Rash Tetracyclines Allergy (Verified 05/09/17 08:56) Unknown Erythromycin Allergy (Uncoded 11/10/16 18:17) Hives/Rash Home Medications: Roflumilast [Daliresp*] 500 mcg PO DAILY 11/10/14 Tiotropium [Spiriva Handihaler*] 18 mcg IH DAILY 11/10/14 Albuterol Sulfate [Proventil Hfa] 2 puff IH Q4HP PRN 11/10/16 Budesonide/Formoterol Fumarate [Symbicort 160-4.5 Mcg Inhaler] 2 puff IH BID Verapamil HCl [Verapamil ER] 120 mg PO DAILY 05/08/17 predniSONE [Deltasone*] 10 mg PO BID #20 tab 05/10/17 Loratadine [Claritin] 10 mg PO DAILY 04/27/18 Spironolactone [Aldactone] 25 mg PO DAILY 04/27/18 - Past Medical/Surgical History Diabetic: No -: HTN -: End stage COPD, Oxygen dependent -: Arthritis -: History of colon cancer -: GERD -: Alcohol abuse -: Tobacco abuse -: Tonsillectomy -: Hysterectomy -: Knee surgery -: Back surgery -: Colon mass removal -: Cataract surgery Psychosocial/ Personal History: She lives with . She has children. - Family History Father Medical History: Heart disease, Stroke, Cancer, Seizures Notes: Lung CA Brother Medical History: Hypertension, Cancer Notes: Lung CA Mother Medical History: Lung disease Notes: COPD - Social History Smoking Status: Current some day smoker Alcohol use: Yes CD- Drugs: No Caffeine use: Yes Place of Residence: Home Review of Systems 10-point ROS is otherwise unremarkable General: Weakness Respiratory: Cough, Shortness of Breath Physical Examination Temp Pulse Resp BP Pulse Ox 98.4 F 77 21 H 148/84 H 92 04/28/18 07:23 04/28/18 08:59 04/28/18 07:23 04/28/18 08:59 04/28/18 07:23 General: Alert, Oriented x3 HEENT: Atraumatic Neck: Supple Respiratory: Diminished, Expiratory wheezes Cardiovascular: No edema, Normal S1 S2 Gastrointestinal: Normal bowel sounds, Soft and benign Musculoskeletal: No clubbing, No contractures Laboratory Data (last 24 hrs) 04/27/18 10:30: WBC 15.9 H, Hgb 13.0, Hct 37.7, Plt Count 232 04/27/18 10:30: Sodium 131 L, Potassium 3.9, BUN 17, Creatinine 0.50 L, Glucose 135 H, Magnesium 2.1 - Problems (1) COPD exacerbation Current Visit: Yes Status: Acute Plan: Patient is 68 years of age with a history of COPD maximum bronchodilator therapy admitted with worsening shortness of breath was found to be in AFib currently on amiodarone drip he was severely hypercapnic currently on BiPAP rate sat to 90% of BiPAP . Check ABGs off BiPAP on oxygen chest x-ray hyperinflated patient was on verapamil at home will resume her home medications
--- NOTE | 2018-04-28 11:02 | PN ---
She has spent about 30% of her time in sinus rhythm. I do not think we should do a cardioversion. W e will let the blood pH and pCO2 levels improved. Continue the amiodarone drip and I suspect she brina l revert to sinus rhythm when her overall respiratory status is improved. I think she needs to be on long-term oral amiodarone and an anticoagulant to reduce the risk of stroke. RISHABH/KRISTY Voice ID: [id number] Report ID: [id number]
[2018-04-28] MEDS: FOLIC ACID 1 MG in NA CHLORIDE 0.9% 50 ML IV SCH (11:42)
[2018-04-28] MEDS: SPIRONOLACTONE 25 MG TABLET PO SCH (11:42)
[2018-04-28 12:03] LABS: Arterial Blood Carboxyhemoglob 2.3 % (0-1.5); Blood Gas Oxyhemoglobin 86.4 % (94-97); Blood O2 Saturation 88.8 % (92-98.5)
[2018-04-28] MEDS: VERAPAMIL SR 240 MG TABLET PO SCH (12:25)
[2018-04-28 15:32] LABS: CKMB Creatine Kinase MB 2.9 ng/mL (0.3-3.6)
[2018-04-28] MEDS: LORAZEPAM 0.5 MG TABLET PO PRN (16:36)
[2018-04-28] MEDS: FLUTICASONE (FLONASE) 50MCG NASAL SPRAY NAS SCH (20:53)
[2018-04-29] MEDS: METHYLPREDNISOLONE 125 MG INJ IV SCH (05:02)
[2018-04-29 05:25] LABS: Absolute Lymphocytes (CBC) 0.1 K/uL (0.7-4.9); Absolute Monocytes 0.3 K/uL (0.1-1.3); Absolute Neutrophil 9.2 K/uL (1.8-8.0); Basophils % 0.1 % (0-1.3); Hematocrit 34.8 % (36.0-45.0); MCH 32.8 pg (27.0-35.0); MCV 94.2 fL (80-100); MPV 9.5 fL (7.6-11.3); Monocytes % 3.1 % (3.3-12.3)
[2018-04-29 05:56] LABS: BUN Blood Urea Nitrogen 18 mg/dL (7-18); Glucose Level 131 mg/dL (74-106); Sodium Level 134 mmol/L (136-145)
[2018-04-29 06:09] LABS: Bicarbonate > 45 mmol/L (21-32)
[2018-04-29] MEDS ORDERED: POTASSIUM 25 MEQ EFFERV TAB PO ONE (06:12)
[2018-04-29] MEDS: ARFORMOTEROL TARTRATE 15 MCG/2 ML VIAL.NEB NEB SCH ×2 (07:46→19:51)
--- NOTE | 2018-04-29 08:10 | RAD REPORT ---
EXAM DESCRIPTION: Vicente Single View04/29/2018 6:30 am CLINICAL HISTORY: Shortness of breath COMPARISON: April FINDINGS: The lungs remain hyperaerated. The lungs appear clear of acute infiltrate. The heart is mildly enlarged IMPRESSION: COPD without visualization of an acute abnormality
[2018-04-29] MEDS: ENOXAPARIN 60 MG/0.6 ML SQ SCH ×2 (08:26→20:38)
[2018-04-29] MEDS: ROFLUMILAST 500 MCG TABLET PO SCH (08:26)
[2018-04-29] MEDS: SPIRONOLACTONE 25 MG TABLET PO SCH (08:26)
[2018-04-29] MEDS: LORAZEPAM 0.5 MG TABLET PO PRN ×2 (08:26→20:38)
[2018-04-29] MEDS: FUROSEMIDE 20 MG/ 2ML VIAL IV SCH (08:26)
[2018-04-29] MEDS: PANTOPRAZOLE 40 MG INJ IVP SCH (08:26)
[2018-04-29] MEDS: FLUTICASONE (FLONASE) 50MCG NASAL SPRAY NAS SCH ×2 (08:27→20:38)
--- NOTE | 2018-04-29 08:31 | EKG ---
Test Date: 2018-04-28 Test Time: 09:03:16 Gas Plumbing Inspector: REGINE MEASUREMENT RESULTS: Intervals: Rate: 121 MS: QRSD: 86 QT: 344 QTc: 488 [place]: P: MS: QRS: 68 T: 70 INTERPRETIVE STATEMENTS: Atrial fibrillation with rapid ventricular response Minimal voltage criteria for LVH, may be normal variant Abnormal ECG Compared to ECG 04/27/2018 20:14:05 Left ventricular hypertrophy now present Sinus rhythm no longer present Atrial premature complex(es) no longer present T-wave abnormality no longer present Possible ischemia no longer present Prolonged QT interval no longer present Electronically Signed On 04-29-18 08:30:46 CDT by Doroteo Varghese
--- NOTE | 2018-04-29 08:31 | EKG ---
Test Date: 2018-04-27 Test Time: 20:14:05 Progressive Assembler And Fitter: RT-O MEASUREMENT RESULTS: Intervals: Rate: 71 WI: 156 QRSD: 82 QT: 440 QTc: 478 [place]: P: 85 WI: 156 QRS: 50 T: 77 INTERPRETIVE STATEMENTS: Sinus rhythm with premature atrial complexes Possible Left atrial enlargement T wave abnormality, consider anterior ischemia Prolonged QT Abnormal ECG Compared to ECG 04/27/2018 11:54:14 Atrial premature complex(es) now present T-wave abnormality now present Possible ischemia now present Prolonged QT interval now present Atrial flutter no longer present ST (T wave) deviation no longer present Electronically Signed On 04-29-18 08:31:19 CDT by Doroteo Varghese
--- NOTE | 2018-04-29 08:47 | P.PN ---
Subjective Date of Service: 04/29/18 Primary Care Provider: Dr. Domingo; Pulmonary-Dr Funk Chief Complaint: SOB Subjective: Improving, Doing well Physical Examination - Vital Signs Temperature: 98.5 F Blood Pressure: 130/90 Pulse: 125 Respirations: 24 Pulse Ox (%): 93 - Physical Exam General: Alert, In no apparent distress, Oriented x3, Cooperative HEENT: Atraumatic Neck: Supple Respiratory: Expiratory wheezes, Other (Better air movement, still with severe COPD) Cardiovascular: Irregular heart rate/rhythm (Patient going in and out of atrial fibrillation. Rate better controlled) Gastrointestinal: Normal bowel sounds, Soft and benign, Non-distended, No tenderness, No masses, No rebound, No guarding Musculoskeletal: No erythema, No tenderness, No warmth Integumentary: No tenderness/swelling, No erythema, No warmth, No cyanosis Neurological: Normal speech, Normal strength at 5/5 x4 extr, Normal tone, Normal affect - Studies Medications List Reviewed: Yes Assessment & Plan - Problems (Diagnosis) (1) COPD (chronic obstructive pulmonary disease) Onset Date: 04/29/18 Current Visit: Yes Status: Acute Plan: Patient overall improvement and more stable. Patient still requires BiPAP at times but has transition to nasal cannula. Case discussed with pulmonology. 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 Will transition off IV steroids to oral steroids. Continue to wean off BiPAP completely. Patient desires the possibility of going to a skilled facility to continue to rehabilitate. Will have social services technician evaluate this. Patient still with atrial fibrillation. Patient goes in and out of atrial fibrillation. Patient on IV amiodarone. Cardiology had planned to cardiovert her yesterday but did not. Await further recommendations from cardiology. Patient with acute on chronic resp. failure with hypoxia and hypercapnea with notable history of end-stage COPD on chronic oxygen at home and multiple medications. I will turn the service over to Dr. Benoit tomorrow. I will go over the plan of care with her. Qualifiers: COPD type: COPD with acute exacerbation Qualified Code(s): J44.1 - Chronic obstructive pulmonary disease with (acute) exacerbation (2) Atrial flutter with rapid ventricular response Onset Date: 04/29/18 Current Visit: Yes Status: Acute Plan: Patient with Atrial fib/flutter. Patient currently on amiodarone drip. Patient on Lovenox 1 milligram/kilogram subcu b.i.d.. Patient going in and out of atrial fibrillation. Cardiology had plan for cardioversion yesterday but did not. Await further recommendations from cardiology. Patient still may get cardioverted today. (3) CHF (congestive heart failure) Onset Date: 04/29/18 Current Visit: Yes Status: Suspected Plan: Acute on chronic diastolic CHF. Will transition Lasix to oral medication-Lasix 40 mg 1 pill twice daily. Pulmonology added Aldactone. Await echocardiogram. Await further recommendations from cardiology. Qualifiers: Heart failure type: diastolic Heart failure chronicity: acute on chronic Qualified Code(s): I50.33 - Acute on chronic diastolic (congestive) heart failure (4) Hyponatremia Onset Date: 04/29/18 Current Visit: Yes Status: Acute Plan: Will monitor closely. Maybe related to her CHF, this has improved (5) HTN (hypertension) Onset Date: 04/29/18 Current Visit: Yes Status: Chronic Plan: Patient no longer on verapamil. Patient on amiodarone. Will provide hydralazine as needed. Cardiology recommends no calcium channel loretta or beta loretta at this time. Qualifiers: Hypertension type: essential hypertension Qualified Code(s): I10 - Essential (primary) hypertension (6) GERD (gastroesophageal reflux disease) Onset Date: 04/29/18 Current Visit: Yes Status: Chronic Plan: Will transition PPI to oral. Qualifiers: Esophagitis presence: esophagitis presence not specified Qualified Code(s) : K21.9 - Gastro-esophageal reflux disease without esophagitis (7) Tobacco abuse Onset Date: 04/29/18 Current Visit: Yes Status: Chronic Plan: May need nicotine patch. (8) Alcohol abuse Onset Date: 04/29/18 Current Visit: Yes Status: Acute Plan: She admits 4 beers per night. Will transition thiamine and folic acid to oral. (9) Acute respiratory failure with hypoxia and hypercapnia Onset Date: 05/09/17 Current Visit: No Status: Acute Plan: Continue as above. (10) Elevated troponin Onset Date: 05/09/17 Current Visit: No Status: Acute Plan: Likely stress from her SOB/COPD/Atrial flutter. Will monitor. Cardiology is aware of patient. Echocardiogram pending. Await further recommendations from cardiology. Discharge Plan: Other (Skilled placement) Plan to discharge in: 48 Hours Time Spent Managing Pts Care (In Minutes): 55
[2018-04-29] MEDS: AMIODARONE HCL 450 MG in D5W 241 ML IV SCH ×2 (08:51→15:27)
[2018-04-29] MEDS ORDERED: FUROSEMIDE 40 MG TABLET PO SCH (09:00)
[2018-04-29] MEDS ORDERED: ROFLUMILAST 500 MCG TABLET PO SCH (09:00)
[2018-04-29] MEDS ORDERED: predniSONE 20 MG TAB PO SCH (09:00)
[2018-04-29] MEDS ORDERED: VERAPAMIL HCL 120 MG PO SCH (09:00)
[2018-04-29] MEDS: VERAPAMIL SR 240 MG TABLET PO SCH (10:16)
[2018-04-29] MEDS: FOLIC ACID 1 MG TABLET PO SCH (10:17)
[2018-04-29] MEDS: LORATADINE 10 MG TAB PO SCH (10:17)
[2018-04-29] MEDS: THIAMINE HCL 100 MG TABLET PO SCH (10:17)
[2018-04-29 10:28] LABS: Arterial Blood Carboxyhemoglob 1.7 % (0-1.5); Blood Gas Oxyhemoglobin 82.7 % (94-97); Blood O2 Saturation 84.6 % (92-98.5)
[2018-04-29] MEDS ORDERED: VERAPAMIL SR 240 MG TABLET PO SCH (11:00)
--- NOTE | 2018-04-29 12:20 | P.PN ---
Subjective Date of Service: 04/29/18 Primary Care Provider: Dr. Domingo; Pulmonary-Dr Funk Chief Complaint: COPD exacerbation atrial fibrillation Subjective: Improving (Patient is doing better she required BiPAP last night still in AFib) Review of Systems General: Weakness Respiratory: Shortness of Breath Physical Examination - Vital Signs Temperature: 98.5 F Blood Pressure: 140/97 Pulse: 97 Respirations: 24 Pulse Ox (%): 93 - Physical Exam General: Oriented x3 Neck: Supple Respiratory: Diminished, Expiratory wheezes Cardiovascular: No edema, Irregular heart rate/rhythm - Studies Medications List Reviewed: Yes Assessment & Plan - Problems (Diagnosis) (1) COPD exacerbation Current Visit: Yes Status: Acute Plan: Patient admitted with COPD exacerbation doing better reduce the dose of prednisone continue with bronchodilators Dc verapamil as per cardiology reduce dose of Lasix continue with spironolactone echo pending patient is on amiodarone
--- NOTE | 2018-04-29 12:30 | ECHO ---
HEIGHT: 5 ft 0 in WEIGHT: 116 lb 1.6 oz DATE OF STUDY: 04/29/[address]: Efrain Villafuerte DO 2-DIMENSIONAL: YES M.MODE: YES DOPPLER: YES COLOR FLOW: YES TDS: NO PORTABLE: NO DEFINITY: NO BUBBLE STUDY: NO DIAGNOSIS: ATRIAL FLUTTER, HYPERTENSION CARDIAC HISTORY: CATHERIZATION: NO SURGERY: NO PROSTHETIC VALVE: NO PACEMAKER: NO MEASUREMENTS (cm) DIASTOLIC (NORMALS) SYSTOLIC (NORMALS) IVSd 1.1 (0.6-1.2) LA Diam 3.9 (1.9-4.0) LVEF 40-45% LVIDd 4.7 (3.5-5.7) LVIDs 3.9 (2.0-3.5) %FS 18% LVPWd 1.1 (0.6-1.2) Ao Diam 3.1 (2.0-3.7) 2 DIMENSIONAL ASSESSMENT: RIGHT ATRIUM: DILATED LEFT ATRIUM: NORMAL RIGHT VENTRICLE: DILATED LEFT VENTRICLE: NORMAL TRICUSPID VALVE: NORMAL MITRAL VALVE: NORMAL PULMONIC VALVE: NORMAL AORTIC VALVE: NORMAL PERICARDIAL EFFUSION: NONE AORTIC ROOT: NORMAL LEFT VENTRICULAR WALL MOTION: GLOBAL HYPOKINESIS. DOPPLER/COLOR FLOW: MILD MITRAL AND TRICUSPID REGURGITATION. MODERATE PULMONARY HYPERTENSION- ESTIMATED RIGHT VENTRICULAR SYSTOLIC PRESSURE 50-55mmHg. COMMENTS: DEPRESSED LEFT VENTRICULAR EJECTION FRACTION. DILATED RIGHT ATRIUM, RIGHT VENTRICLE. MILD MITRAL AND TRICUSPID REGURGITATION. MODERATE PULMONARY HYPERTENSION. ATRIAL FIBRILLATION. TECHNOLOGIST: BORIS ALCANTAR
[2018-04-29 16:00] LABS: CKMB Creatine Kinase MB 1.2 ng/mL (0.3-3.6)
[2018-04-29] MEDS: KCL 20 MEQ/100 mL IVPB 20 MEQ/100 ML BAG IV SCH ×2 (16:47→18:32)
[2018-04-29] MEDS: predniSONE 10 MG TAB PO SCH (20:38)
[2018-04-30 04:17] LABS: Absolute Lymphocytes (CBC) 0.2 K/uL (0.7-4.9); Absolute Monocytes 0.8 K/uL (0.1-1.3); Absolute Neutrophil 12.4 K/uL (1.8-8.0); Basophils % 0.1 % (0-1.3); Hematocrit 34.4 % (36.0-45.0); Lymphocytes % 1.6 % (15.3-44.8); MCH 32.2 pg (27.0-35.0); MCV 95.1 fL (80-100); MPV 9.3 fL (7.6-11.3); Monocytes % 6.2 % (3.3-12.3); RBC Red Blood Cell Count 3.62 M/uL (3.86-4.86)
[2018-04-30 04:32] VITALS: BMI 22.2
[2018-04-30 05:04] LABS: BUN Blood Urea Nitrogen 24 mg/dL (7-18); Glucose Level 114 mg/dL (74-106); Magnesium 2.1 mg/dL (1.8-2.4); Potassium 4.2 mmol/L (3.5-5.1); Sodium Level 135 mmol/L (136-145)
[2018-04-30 05:05] LABS: Bicarbonate 55 mmol/L (21-32)
[2018-04-30 05:09] LABS: Blood Morphology Comment NOT SEEN (NOT SEEN); Platelet Estimate ADEQ
[2018-04-30] MEDS: PANTOPRAZOLE 40MG TABLET PO SCH (05:32)
[2018-04-30] MEDS: ARFORMOTEROL TARTRATE 15 MCG/2 ML VIAL.NEB NEB SCH ×2 (07:50→21:11)
[2018-04-30] MEDS: ENOXAPARIN 60 MG/0.6 ML SQ SCH ×2 (08:33→20:15)
[2018-04-30] MEDS: SPIRONOLACTONE 25 MG TABLET PO SCH (08:34)
[2018-04-30] MEDS: FOLIC ACID 1 MG TABLET PO SCH (08:35)
[2018-04-30] MEDS: predniSONE 10 MG TAB PO SCH ×2 (08:35→20:14)
[2018-04-30] MEDS: THIAMINE HCL 100 MG TABLET PO SCH (08:35)
[2018-04-30] MEDS: LORATADINE 10 MG TAB PO SCH (08:35)
[2018-04-30] MEDS: FUROSEMIDE 40 MG TABLET PO SCH (08:36)
[2018-04-30] MEDS: FLUTICASONE (FLONASE) 50MCG NASAL SPRAY NAS SCH ×2 (08:38→20:15)
[2018-04-30] MEDS: AMIODARONE HCL 450 MG in D5W 241 ML IV SCH ×2 (08:46→23:55)
[2018-04-30] MEDS: ROFLUMILAST 500 MCG TABLET PO SCH (08:46)
[2018-04-30] MEDS: ACETAMINOPHEN 500 MG TAB PO PRN (08:48)
--- NOTE | 2018-04-30 17:28 | P.PN ---
Subjective Date of Service: 04/30/18 Primary Care Provider: Dr. Domingo; Pulmonary-Dr Funk Chief Complaint: COPD exacerbation atrial fibrillation Patient seen and examined at bedside with RN. Chart reviewed. Case discussed with cardiology and pulmonology. Currently doing well no complaints to offer. Review of Systems General: As per HPI Physical Examination - Vital Signs Temperature: 97.2 F Blood Pressure: 125/50 Pulse: 80 Respirations: 21 Pulse Ox (%): 98 - Physical Exam General: Alert, In no apparent distress HEENT: Atraumatic, PERRLA, EOMI Neck: Supple, JVD not distended Respiratory: Normal air movement, Inspiratory wheezes Cardiovascular: Regular rate/rhythm, Normal S1 S2 Gastrointestinal: Normal bowel sounds, Soft and benign, Non-distended, No tenderness Musculoskeletal: No tenderness Integumentary: No rashes Neurological: Normal speech, Normal tone, Normal affect Lymphatics: No axilla or inguinal lymphadenopathy - Studies Medications List Reviewed: Yes Assessment & Plan - Problems (Diagnosis) (1) Atrial flutter with rapid ventricular response Onset Date: 04/29/18 Current Visit: Yes Status: Acute Plan: Currently patient rate controlled. -On Amiodarone ggt -Lovenox WB for anticoagulation -Cardiology consulted. Appreciate reccs (2) COPD exacerbation Current Visit: Yes Status: Acute Plan: COPD exacerbation. Improved. -Duonebs, Steriods and Oxygen -BIPAP as needed (3) CHF (congestive heart failure) Onset Date: 04/29/18 Current Visit: Yes Status: Chronic Plan: CHF with EF of 40-45 % and Diastolic Dysfuntion -PO lasix and spironolactone for now Qualifiers: Heart failure type: diastolic Heart failure chronicity: acute on chronic Qualified Code(s): I50.33 - Acute on chronic diastolic (congestive) heart failure (4) GERD (gastroesophageal reflux disease) Onset Date: 04/29/18 Current Visit: Yes Status: Chronic Qualifiers: Esophagitis presence: esophagitis presence not specified Qualified Code(s) : K21.9 - Gastro-esophageal reflux disease without esophagitis (5) HTN (hypertension) Onset Date: 04/29/18 Current Visit: Yes Status: Chronic Qualifiers: Hypertension type: essential hypertension Qualified Code(s): I10 - Essential (primary) hypertension (6) Tobacco abuse Onset Date: 04/29/18 Current Visit: Yes Status: Chronic (7) History of colon cancer Onset Date: 05/09/17 Current Visit: No Status: Chronic Discharge Plan: Home Plan to discharge in: 48 Hours - Code Status/Comfort Care Code Status Assessed: Yes Critical Care: No
[2018-05-01 05:45] LABS: Absolute Lymphocytes (CBC) 0.3 K/uL (0.7-4.9); Absolute Monocytes 0.7 K/uL (0.1-1.3); Absolute Neutrophil 7.5 K/uL (1.8-8.0); Basophils % 0.6 % (0-1.3); Eosinophils % 0.1 % (0-4.4); Hematocrit 35.7 % (36.0-45.0); Lymphocytes % 3.7 % (15.3-44.8); MCH 32.5 pg (27.0-35.0); MCV 95.8 fL (80-100); MPV 8.8 fL (7.6-11.3); Monocytes % 8.4 % (3.3-12.3); RBC Red Blood Cell Count 3.73 M/uL (3.86-4.86)
[2018-05-01 06:11] LABS: BUN Blood Urea Nitrogen 15 mg/dL (7-18); Glucose Level 102 mg/dL (74-106); Magnesium 2.1 mg/dL (1.8-2.4); Potassium 3.6 mmol/L (3.5-5.1); Sodium Level 138 mmol/L (136-145)
[2018-05-01 06:28] LABS: Bicarbonate 59 mmol/L (21-32)
[2018-05-01] MEDS: PANTOPRAZOLE 40MG TABLET PO SCH (06:35)
[2018-05-01] MEDS ORDERED: KCL 20 MEQ/100 mL IVPB 20 MEQ/100 ML BAG IV SCH (07:00)
[2018-05-01] MEDS: LEVALBUTEROL 1.25 MG/3 ML NEB NEB PRN ×3 (07:32→20:19)
[2018-05-01] MEDS: ARFORMOTEROL TARTRATE 15 MCG/2 ML VIAL.NEB NEB SCH ×2 (07:32→20:19)
[2018-05-01] MEDS: SPIRONOLACTONE 25 MG TABLET PO SCH (08:19)
[2018-05-01] MEDS: FOLIC ACID 1 MG TABLET PO SCH (08:19)
[2018-05-01] MEDS: LORATADINE 10 MG TAB PO SCH (08:23)
[2018-05-01] MEDS: predniSONE 10 MG TAB PO SCH ×2 (08:23→21:45)
[2018-05-01] MEDS: ACETAMINOPHEN 500 MG TAB PO PRN (08:23)
[2018-05-01] MEDS: ROFLUMILAST 500 MCG TABLET PO SCH (08:23)
[2018-05-01] MEDS: FUROSEMIDE 40 MG TABLET PO SCH (08:24)
[2018-05-01] MEDS: THIAMINE HCL 100 MG TABLET PO SCH (08:24)
[2018-05-01] MEDS: ENOXAPARIN 60 MG/0.6 ML SQ SCH ×2 (08:24→21:45)
[2018-05-01] MEDS: FLUTICASONE (FLONASE) 50MCG NASAL SPRAY NAS SCH ×2 (08:25→21:45)
[2018-05-01] MEDS: LORAZEPAM 0.5 MG TABLET PO PRN ×2 (11:07→22:33)
[2018-05-01] MEDS: IPRATROPIUM BROM 0.5MG/2.5ML NEB PRN ×2 (13:20→20:19)
[2018-05-01] MEDS: AMIODARONE HCL 450 MG in D5W 241 ML IV SCH (14:26)
--- NOTE | 2018-05-01 15:29 | P.PN ---
Subjective Date of Service: 05/01/18 Primary Care Provider: Dr. Domingo; Pulmonary-Dr Funk Chief Complaint: COPD exacerbation atrial fibrillation Patient seen and examined at bedside with RN. Chart reviewed. Case discussed with cardiology and pulmonology. Currently doing well no complaints to offer. -No Overnight complains -Lab with elevated CO2 and Placed on BIPAP now Review of Systems General: As per HPI Physical Examination - Vital Signs Temperature: 97.9 F Blood Pressure: 123/71 Pulse: 120 Respirations: 20 Pulse Ox (%): 99 - Physical Exam General: Alert, Oriented x2, Cachectic, Acute distress HEENT: Atraumatic Neck: Supple, JVD not distended Respiratory: Normal air movement, Diminished, Expiratory wheezes Cardiovascular: Normal S1 S2, Irregular heart rate/rhythm Gastrointestinal: Normal bowel sounds, No tenderness Musculoskeletal: No tenderness Integumentary: No rashes Neurological: Normal speech, Normal tone, Normal affect Lymphatics: No axilla or inguinal lymphadenopathy - Studies Medications List Reviewed: Yes Assessment & Plan - Problems (Diagnosis) (1) Atrial flutter with rapid ventricular response Onset Date: 04/29/18 Current Visit: Yes Status: Acute Plan: Currently patient with Flactuating HR between 110-120 -On Amiodarone ggt -Lovenox WB for anticoagulation -Cardiology consulted. Appreciate reccs -Planning for transfer for cardioversion (2) COPD exacerbation Current Visit: Yes Status: Acute Plan: COPD exacerbation with ARF with hypercapnia\ -Duonebs, Steriods -BIPAP for now -Repeat ABG -Pulmonology Consulted. (3) CHF (congestive heart failure) Onset Date: 04/29/18 Current Visit: Yes Status: Chronic Plan: CHF with EF of 40-45 % and Diastolic Dysfuntion -PO lasix and spironolactone for now Qualifiers: Heart failure type: diastolic Heart failure chronicity: acute on chronic Qualified Code(s): I50.33 - Acute on chronic diastolic (congestive) heart failure (4) GERD (gastroesophageal reflux disease) Onset Date: 04/29/18 Current Visit: Yes Status: Chronic Qualifiers: Esophagitis presence: esophagitis presence not specified Qualified Code(s) : K21.9 - Gastro-esophageal reflux disease without esophagitis (5) HTN (hypertension) Onset Date: 04/29/18 Current Visit: Yes Status: Chronic Qualifiers: Hypertension type: essential hypertension Qualified Code(s): I10 - Essential (primary) hypertension (6) Tobacco abuse Onset Date: 04/29/18 Current Visit: Yes Status: Chronic (7) History of colon cancer Onset Date: 05/09/17 Current Visit: No Status: Chronic Discharge Plan: Other Plan to discharge in: 48 Hours - Code Status/Comfort Care Code Status Assessed: Yes Critical Care: No
[2018-05-01 16:03] LABS: Arterial Blood Carboxyhemoglob 1.7 % (0-1.5); Blood O2 Saturation 92.3 % (92-98.5)
[2018-05-01 16:06] LABS: Arterial Blood Carboxyhemoglob 2.1 % (0-1.5); Blood Gas Oxyhemoglobin 86.3 % (94-97); Blood O2 Saturation 88.7 % (92-98.5)
[2018-05-02] MEDS: AMIODARONE HCL 450 MG in D5W 241 ML IV SCH ×3 (05:32→21:01)
[2018-05-02] MEDS: PANTOPRAZOLE 40MG TABLET PO SCH (05:32)
[2018-05-02 06:13] LABS: Absolute Lymphocytes (CBC) 0.5 K/uL (0.7-4.9); Absolute Monocytes 0.7 K/uL (0.1-1.3); Absolute Neutrophil 9.6 K/uL (1.8-8.0); Basophils % 0.2 % (0-1.3); Eosinophils % 0.1 % (0-4.4); Lymphocytes % 4.4 % (15.3-44.8); MCV 94.8 fL (80-100); MPV 9.8 fL (7.6-11.3); Monocytes % 6.3 % (3.3-12.3); RBC Red Blood Cell Count 4.33 M/uL (3.86-4.86)
[2018-05-02 07:03] LABS: BUN Blood Urea Nitrogen 17 mg/dL (7-18); Glucose Level 110 mg/dL (74-106); Sodium Level 135 mmol/L (136-145)
[2018-05-02 07:04] LABS: Magnesium 1.9 mg/dL (1.8-2.4)
[2018-05-02 07:05] LABS: Bicarbonate 49 mmol/L (21-32)
[2018-05-02] MEDS ORDERED: POTASSIUM CL 40 MEQ in NA CHLORIDE 0.9% 500 ML IV SCH (08:00)
[2018-05-02] MEDS: ARFORMOTEROL TARTRATE 15 MCG/2 ML VIAL.NEB NEB SCH ×2 (08:27→19:53)
[2018-05-02] MEDS: predniSONE 10 MG TAB PO SCH ×2 (09:36→21:00)
[2018-05-02] MEDS: LORATADINE 10 MG TAB PO SCH (09:36)
[2018-05-02] MEDS: FOLIC ACID 1 MG TABLET PO SCH (09:36)
[2018-05-02] MEDS: THIAMINE HCL 100 MG TABLET PO SCH (09:36)
[2018-05-02] MEDS: SPIRONOLACTONE 25 MG TABLET PO SCH (09:36)
[2018-05-02] MEDS: FLUTICASONE (FLONASE) 50MCG NASAL SPRAY NAS SCH ×2 (09:37→21:00)
[2018-05-02] MEDS: ROFLUMILAST 500 MCG TABLET PO SCH (09:37)
[2018-05-02] MEDS: ENOXAPARIN 60 MG/0.6 ML SQ SCH ×2 (09:37→21:00)
[2018-05-02] MEDS: HYDRALAZINE HCL 20 MG/ML VIAL IV PRN (11:51)
[2018-05-02] MEDS: ACETAMINOPHEN 500 MG TAB PO PRN (12:24)
[2018-05-02] MEDS: FUROSEMIDE 40 MG TABLET PO SCH (12:34)
[2018-05-02] MEDS: LORAZEPAM 0.5 MG TABLET PO PRN ×2 (13:07→22:43)
--- NOTE | 2018-05-02 13:39 | P.PN ---
Subjective Date of Service: 05/02/18 Primary Care Provider: Dr. Domingo; Pulmonary-Dr Funk Chief Complaint: COPD exacerbation atrial fibrillation Patient seen and examined at bedside with RN. Chart reviewed. Case discussed with cardiology and pulmonology. Currently doing well no complaints to offer. -No Overnight complains -Lab with elevated CO2. Weaned off BIPAP overnight -Meeting setup with family for Hospice care Review of Systems General: As per HPI Physical Examination - Vital Signs Temperature: 97 F Blood Pressure: 124/89 Pulse: 91 Respirations: 26 Pulse Ox (%): 97 - Physical Exam General: Alert, In no apparent distress, Mild distress HEENT: Atraumatic, PERRLA, EOMI Neck: Supple, JVD not distended Respiratory: Normal air movement, Crackles/rales Cardiovascular: Normal S1 S2, Irregular heart rate/rhythm Gastrointestinal: Normal bowel sounds, No tenderness Musculoskeletal: No tenderness Integumentary: No rashes Neurological: Normal speech, Normal tone, Normal affect Lymphatics: No axilla or inguinal lymphadenopathy - Studies Microbiology Data (last 24 hrs): 04/27/18 11:00 Blood - Blood Aerobic Blood Culture - Final No growth in 5 days. 04/27/18 11:00 Blood - Blood Anaerobic Blood Culture - Final No growth in 5 days. 04/27/18 10:45 Blood - Blood Aerobic Blood Culture - Final No growth in 5 days. 04/27/18 10:45 Blood - Blood Anaerobic Blood Culture - Final No growth in 5 days. Medications List Reviewed: Yes Assessment & Plan - Problems (Diagnosis) (1) Atrial flutter with rapid ventricular response Onset Date: 04/29/18 Current Visit: Yes Status: Acute Plan: Currently patient with Flactuating HR between 110-120 -On Amiodarone ggt -Lovenox WB for anticoagulation -Cardiology consulted. Appreciate reccs -Planning for transfer for cardioversion (2) COPD exacerbation Current Visit: Yes Status: Acute Plan: COPD exacerbation with ARF with hypercapnia\ -DuZabrina samaniego -BIPAP PRN -Pulmonology Consulted. Appreciate Reccs (3) CHF (congestive heart failure) Onset Date: 04/29/18 Current Visit: Yes Status: Chronic Plan: CHF with EF of 40-45 % and Diastolic Dysfuntion -PO lasix and spironolactone for now Qualifiers: Heart failure type: diastolic Heart failure chronicity: acute on chronic Qualified Code(s): I50.33 - Acute on chronic diastolic (congestive) heart failure (4) GERD (gastroesophageal reflux disease) Onset Date: 04/29/18 Current Visit: Yes Status: Chronic Qualifiers: Esophagitis presence: esophagitis presence not specified Qualified Code(s) : K21.9 - Gastro-esophageal reflux disease without esophagitis (5) HTN (hypertension) Onset Date: 04/29/18 Current Visit: Yes Status: Chronic Qualifiers: Hypertension type: essential hypertension Qualified Code(s): I10 - Essential (primary) hypertension (6) Tobacco abuse Onset Date: 04/29/18 Current Visit: Yes Status: Chronic (7) History of colon cancer Onset Date: 05/09/17 Current Visit: No Status: Chronic Discharge Plan: Other Plan to discharge in: 48 Hours - Code Status/Comfort Care Code Status Assessed: Yes Critical Care: No
--- NOTE | 2018-05-02 15:14 | PN ---
Ms. Andrews remains in AFib with heart rate controlled. Her pH is 7.47 and pCO2 of 77. I do not thin k we are going to get much better numbers in this and I suppose that the next step is for us to consi bhargav EP consult. The patient is stable enough, so we could probably switch her to oral amiodarone pre tty soon and have her visit. Dr. Courtney saw her in his office if he would recommend an AFib ablation o r rate control with anticoagulation. The patient does not seem to be terribly bothered by the atrial fibrillation. RISHABH/KRISTY Voice ID: [id number] Report ID: [id number]
[2018-05-02] MEDS: MAGNESIUM HYDROXIDE 8% 30 ML PO PRN (15:45)
[2018-05-02] MEDS ORDERED: AMIODARONE HCL 200 MG TAB PO ONE (21:08)
[2018-05-02] MEDS: KCL 20 MEQ/100 mL IVPB 20 MEQ/100 ML BAG IV SCH ×2 (21:56→22:43)
[2018-05-03 05:48] LABS: BUN Blood Urea Nitrogen 18 mg/dL (7-18); Bicarbonate 41 mmol/L (21-32); Glucose Level 110 mg/dL (74-106); Magnesium 1.9 mg/dL (1.8-2.4); Potassium 3.9 mmol/L (3.5-5.1); Sodium Level 133 mmol/L (136-145)
[2018-05-03] MEDS: PANTOPRAZOLE 40MG TABLET PO SCH (06:45)
[2018-05-03] MEDS ORDERED: KCL 20 MEQ/100 mL IVPB 20 MEQ/100 ML BAG IV SCH (07:00)
[2018-05-03] MEDS: ARFORMOTEROL TARTRATE 15 MCG/2 ML VIAL.NEB NEB SCH ×2 (07:35→20:18)
[2018-05-03] MEDS: LORATADINE 10 MG TAB PO SCH (09:06)
[2018-05-03] MEDS: THIAMINE HCL 100 MG TABLET PO SCH (09:07)
[2018-05-03] MEDS: FOLIC ACID 1 MG TABLET PO SCH (09:07)
[2018-05-03] MEDS: SPIRONOLACTONE 25 MG TABLET PO SCH (09:07)
[2018-05-03] MEDS: FUROSEMIDE 40 MG TABLET PO SCH (09:08)
[2018-05-03] MEDS: predniSONE 10 MG TAB PO SCH ×2 (09:09→20:11)
[2018-05-03] MEDS: AMIODARONE HCL 200 MG TAB PO SCH ×2 (09:09→20:11)
[2018-05-03] MEDS: ENOXAPARIN 60 MG/0.6 ML SQ SCH (09:09)
[2018-05-03] MEDS: ROFLUMILAST 500 MCG TABLET PO SCH (09:30)
[2018-05-03] MEDS: FLUTICASONE (FLONASE) 50MCG NASAL SPRAY NAS SCH ×2 (09:46→20:10)
[2018-05-03 12:22] LABS: Absolute Lymphocytes (CBC) 0.5 K/uL (0.7-4.9); Absolute Monocytes 0.9 K/uL (0.1-1.3); Absolute Neutrophil 14.3 K/uL (1.8-8.0); Basophils % 0.4 % (0-1.3); Eosinophils % 0.1 % (0-4.4); Hematocrit 42.8 % (36.0-45.0); Lymphocytes % 3.3 % (15.3-44.8); MCH 31.9 pg (27.0-35.0); MCV 93.4 fL (80-100); MPV 8.8 fL (7.6-11.3); Monocytes % 5.6 % (3.3-12.3); RBC Red Blood Cell Count 4.58 M/uL (3.86-4.86)
--- NOTE | 2018-05-03 15:01 | P.PN ---
Subjective Date of Service: 05/03/18 Primary Care Provider: Dr. Domingo; Pulmonary-Dr Funk Chief Complaint: COPD exacerbation atrial fibrillation Patient seen and examined at bedside with RN. Chart reviewed. Case discussed with cardiology and pulmonology. Currently doing well no complaints to offer. -No Overnight complains -Lab with elevated CO2. Weaned off BIPAP overnight and transfer to the regular floor -family considering Hospice Review of Systems 10-point ROS is otherwise unremarkable General: As per HPI Physical Examination - Vital Signs Temperature: 97.9 F Blood Pressure: 167/83 Pulse: 80 Respirations: 17 Pulse Ox (%): 93 - Physical Exam General: Alert, Oriented x3, Mild distress HEENT: Atraumatic, PERRLA, EOMI Neck: Supple, JVD not distended Respiratory: Normal air movement, Expiratory wheezes, Inspiratory wheezes Cardiovascular: Regular rate/rhythm, Normal S1 S2 Gastrointestinal: Normal bowel sounds, No tenderness Musculoskeletal: No tenderness Integumentary: No rashes Neurological: Normal speech, Normal tone, Normal affect Lymphatics: No axilla or inguinal lymphadenopathy - Studies Microbiology Data (last 24 hrs): 04/27/18 11:00 Blood - Blood Aerobic Blood Culture - Final No growth in 5 days. 04/27/18 11:00 Blood - Blood Anaerobic Blood Culture - Final No growth in 5 days. 04/27/18 10:45 Blood - Blood Aerobic Blood Culture - Final No growth in 5 days. 04/27/18 10:45 Blood - Blood Anaerobic Blood Culture - Final No growth in 5 days. Medications List Reviewed: Yes Assessment & Plan - Problems (Diagnosis) (1) Atrial flutter with rapid ventricular response Onset Date: 04/29/18 Current Visit: Yes Status: Acute Plan: Currently patient with Flactuating HR between 110-120 -On Amiodarone PO now -Lovenox WB for anticoagulation -Cardiology consulted. Appreciate reccs (2) COPD exacerbation Current Visit: Yes Status: Acute Plan: ESCOPD exacerbation with ARF with hypercapnia -Zabrina Palomino -BIPAP PRN -Pulmonology Consulted. Appreciate Reccs -Hospice Consideration (3) CHF (congestive heart failure) Onset Date: 04/29/18 Current Visit: Yes Status: Chronic Plan: CHF with EF of 40-45 % and Diastolic Dysfuntion -PO lasix and spironolactone for now Qualifiers: Heart failure type: diastolic Heart failure chronicity: acute on chronic Qualified Code(s): I50.33 - Acute on chronic diastolic (congestive) heart failure (4) GERD (gastroesophageal reflux disease) Onset Date: 04/29/18 Current Visit: Yes Status: Chronic Qualifiers: Esophagitis presence: esophagitis presence not specified Qualified Code(s) : K21.9 - Gastro-esophageal reflux disease without esophagitis (5) HTN (hypertension) Onset Date: 04/29/18 Current Visit: Yes Status: Chronic Qualifiers: Hypertension type: essential hypertension Qualified Code(s): I10 - Essential (primary) hypertension (6) Tobacco abuse Onset Date: 04/29/18 Current Visit: Yes Status: Chronic (7) History of colon cancer Onset Date: 05/09/17 Current Visit: No Status: Chronic Discharge Plan: Home Plan to discharge in: 48 Hours - Code Status/Comfort Care Code Status Assessed: Yes Critical Care: No
[2018-05-03] MEDS: MAGNESIUM HYDROXIDE 8% 30 ML PO PRN (15:41)
[2018-05-03] MEDS: HYDRALAZINE HCL 20 MG/ML VIAL IV PRN (16:57)
[2018-05-03] MEDS: LORAZEPAM 0.5 MG TABLET PO PRN (20:11)
[2018-05-04] MEDS: PANTOPRAZOLE 40MG TABLET PO SCH (05:30)
--- NOTE | 2018-05-04 05:53 | PN ---
Date of Progress Note: 05/03/2018 History Of Present Illness: Ms. Andrews was initially seen on 04/27/2018; and on 05/02/2018, she was in atrial fibrillation with rate controlled on IV amiodarone. Overnight, on May 03, 2018, she con verted to sinus rhythm. I will switch the patient to p.o. amiodarone, and then she can move to the [facility]. I will discuss with Dr. Benoit the issue of anticoagulation prior to her discharge. ALECIA/KRISTY Voice ID: [id number] Report ID: [id number]
--- NOTE | 2018-05-04 06:02 | EKG ---
Test Date: 2018-05-03 Test Time: 17:44:19 [employer]: DONTA MEASUREMENT RESULTS: Intervals: Rate: 84 AL: 128 QRSD: 74 QT: 388 QTc: 458 [place]: P: AL: 128 QRS: 66 T: 76 INTERPRETIVE STATEMENTS: Sinus rhythm with premature atrial complexes Voltage criteria for left ventricular hypertrophy Marked ST abnormality, possible anterior subendocardial injury Abnormal ECG Compared to ECG 04/28/2018 09:03:16 Atrial premature complex(es) now present ST (T wave) deviation now present Atrial fibrillation no longer present Electronically Signed On 05-04-18 06:01:26 CDT by Jose Manuel Abebe
[2018-05-04 06:15] LABS: BUN Blood Urea Nitrogen 27 mg/dL (7-18); Bicarbonate 40 mmol/L (21-32); Glucose Level 84 mg/dL (74-106); Potassium 3.3 mmol/L (3.5-5.1); Sodium Level 133 mmol/L (136-145)
[2018-05-04] MEDS ORDERED: POTASSIUM 25 MEQ EFFERV TAB PO ONE ×2 (06:20→18:00)
[2018-05-04] MEDS: ARFORMOTEROL TARTRATE 15 MCG/2 ML VIAL.NEB NEB SCH ×2 (08:27→20:18)
[2018-05-04] MEDS: LORATADINE 10 MG TAB PO SCH (08:48)
[2018-05-04] MEDS: SPIRONOLACTONE 25 MG TABLET PO SCH (08:48)
[2018-05-04] MEDS: predniSONE 10 MG TAB PO SCH ×2 (08:48→21:00)
[2018-05-04] MEDS: FUROSEMIDE 40 MG TABLET PO SCH (08:49)
[2018-05-04] MEDS: AMIODARONE HCL 200 MG TAB PO SCH ×2 (08:49→20:59)
[2018-05-04] MEDS: FOLIC ACID 1 MG TABLET PO SCH (08:49)
[2018-05-04] MEDS: THIAMINE HCL 100 MG TABLET PO SCH (08:50)
[2018-05-04] MEDS: ROFLUMILAST 500 MCG TABLET PO SCH (08:52)
[2018-05-04] MEDS: FLUTICASONE (FLONASE) 50MCG NASAL SPRAY NAS SCH ×2 (10:11→21:00)
[2018-05-04] MEDS: ACETAMINOPHEN 500 MG TAB PO PRN (11:51)
[2018-05-04] MEDS: HYDRALAZINE HCL 20 MG/ML VIAL IV PRN (11:51)
--- NOTE | 2018-05-04 13:30 | PN ---
The patient has been followed for atrial fibrillation. She was on IV amiodarone, yesterday she conve rted to sinus rhythm. We will switch her to p.o. amiodarone 400 mg 1 p.o. b.i.d. Today, she remains in sinus rhythm and sinus bradycardia with rare PACs on amiodarone. I would send her home on p.o. a miodarone 400 mg b.i.d. for 6 more days and then switch her to 200 mg daily. She should be on an ant icoagulant. I would leave that up to the primary care physician. We will see her in the office in 2 weeks. REGLA Voice ID: [id number] Report ID: [id number]
--- NOTE | 2018-05-04 15:38 | P.PN ---
Subjective Date of Service: 05/04/18 Primary Care Provider: Dr. Domingo; Pulmonary-Dr Funk Chief Complaint: COPD exacerbation atrial fibrillation Patient seen and examined at bedside with RN. Chart reviewed. Case discussed with cardiology and pulmonology. -No Overnight complains -today c/o of constipation and states her breathing is getting worse -family considering Hospice with [facility] Review of Systems General: As per HPI Physical Examination - Vital Signs Temperature: 97.3 F Blood Pressure: 196/95 Pulse: 69 Respirations: 20 Pulse Ox (%): 94 - Physical Exam General: Alert, Oriented x2, Mild distress (With laboured breathing) HEENT: Atraumatic, PERRLA, EOMI Neck: Supple, JVD not distended Respiratory: Normal air movement, Crackles/rales, Rhonchi/gurgles Cardiovascular: Regular rate/rhythm, Normal S1 S2 Gastrointestinal: Normal bowel sounds, Soft and benign, Non-distended, No tenderness Musculoskeletal: No tenderness Integumentary: No rashes Neurological: Normal speech, Normal tone, Normal affect Lymphatics: No axilla or inguinal lymphadenopathy - Studies Medications List Reviewed: Yes Assessment & Plan - Problems (Diagnosis) (1) Atrial flutter with rapid ventricular response Onset Date: 04/29/18 Current Visit: Yes Status: Acute Plan: Currently patient with Flactuating HR between 110-120 -On Amiodarone PO now -Lovenox WB for anticoagulation -Cardiology consulted. Appreciate reccs (2) COPD exacerbation Current Visit: Yes Status: Acute Plan: ESCOPD exacerbation with ARF with hypercapnia -Zabrina Palomino -BIPAP PRN -Pulmonology Consulted. Appreciate Reccs -Hospice Consideration with [facility] (3) CHF (congestive heart failure) Onset Date: 04/29/18 Current Visit: Yes Status: Chronic Plan: CHF with EF of 40-45 % and Diastolic Dysfuntion -PO lasix and spironolactone for now Qualifiers: Heart failure type: diastolic Heart failure chronicity: acute on chronic Qualified Code(s): I50.33 - Acute on chronic diastolic (congestive) heart failure (4) GERD (gastroesophageal reflux disease) Onset Date: 04/29/18 Current Visit: Yes Status: Chronic Qualifiers: Esophagitis presence: esophagitis presence not specified Qualified Code(s) : K21.9 - Gastro-esophageal reflux disease without esophagitis (5) HTN (hypertension) Onset Date: 04/29/18 Current Visit: Yes Status: Chronic Qualifiers: Hypertension type: essential hypertension Qualified Code(s): I10 - Essential (primary) hypertension (6) Tobacco abuse Onset Date: 04/29/18 Current Visit: Yes Status: Chronic (7) History of colon cancer Onset Date: 05/09/17 Current Visit: No Status: Chronic Discharge Plan: Home Plan to discharge in: 24 Hours - Code Status/Comfort Care Code Status Assessed: Yes Comfort Measures: Hospice Care Critical Care: No
[2018-05-04] MEDS ORDERED: LORAZEPAM 1 MG TABLET PO ONE (20:42)
[2018-05-05] MEDS: ACETAMINOPHEN 500 MG TAB PO PRN (02:56)
[2018-05-05 05:26] LABS: BUN Blood Urea Nitrogen 27 mg/dL (7-18); Glucose Level 100 mg/dL (74-106); Potassium 3.9 mmol/L (3.5-5.1); Sodium Level 128 mmol/L (136-145)
[2018-05-05 05:39] LABS: Bicarbonate 41 mmol/L (21-32)
[2018-05-05] MEDS ORDERED: POTASSIUM CL SA 10 MEQ TAB PO ONE (06:00)
[2018-05-05] MEDS: PANTOPRAZOLE 40MG TABLET PO SCH (06:18)
[2018-05-05] MEDS: ARFORMOTEROL TARTRATE 15 MCG/2 ML VIAL.NEB NEB SCH (08:07)
[2018-05-05] MEDS: AMIODARONE HCL 200 MG TAB PO SCH (08:41)
[2018-05-05] MEDS: LORATADINE 10 MG TAB PO SCH (08:41)
[2018-05-05] MEDS: SPIRONOLACTONE 25 MG TABLET PO SCH (08:41)
[2018-05-05] MEDS: FOLIC ACID 1 MG TABLET PO SCH (08:41)
[2018-05-05] MEDS: ROFLUMILAST 500 MCG TABLET PO SCH (08:41)
[2018-05-05] MEDS: THIAMINE HCL 100 MG TABLET PO SCH (08:42)
[2018-05-05] MEDS: FUROSEMIDE 40 MG TABLET PO SCH (08:42)
[2018-05-05] MEDS: predniSONE 10 MG TAB PO SCH (08:42)
[2018-05-05] MEDS: FLUTICASONE (FLONASE) 50MCG NASAL SPRAY NAS SCH (08:43)
[2018-05-05 09:18] VITALS: O2SAT 93
--- NOTE | 2018-05-05 12:16 | P.DS ---
Admission Date: 04/27/18 Discharge Date: 05/05/18 Primary Care Provider: Dr. Domingo; Pulmonary-Dr Funk Disposition: HOSPICE-HOME Discharge Condition: GOOD Reason for Admission: COPD exacerbation atrial fibrillation Consultations: Dr Mis Cortes - Problems (1) Atrial flutter with rapid ventricular response Onset Date: 04/29/18 Current Visit: Yes Status: Acute (2) COPD exacerbation Current Visit: Yes Status: Acute (3) CHF (congestive heart failure) Onset Date: 04/29/18 Current Visit: Yes Status: Chronic Qualifiers: Heart failure type: diastolic Heart failure chronicity: acute on chronic Qualified Code(s): I50.33 - Acute on chronic diastolic (congestive) heart failure (4) GERD (gastroesophageal reflux disease) Onset Date: 04/29/18 Current Visit: Yes Status: Chronic Qualifiers: Esophagitis presence: esophagitis presence not specified Qualified Code(s) : K21.9 - Gastro-esophageal reflux disease without esophagitis (5) HTN (hypertension) Onset Date: 04/29/18 Current Visit: Yes Status: Chronic Qualifiers: Hypertension type: essential hypertension Qualified Code(s): I10 - Essential (primary) hypertension (6) Tobacco abuse Onset Date: 04/29/18 Current Visit: Yes Status: Chronic (7) History of colon cancer Onset Date: 05/09/17 Current Visit: No Status: Chronic Brief History of Present Illness: 68 yo CF presented to the ER with shortness of breath and chest pain. Patient with significant history of End Stage COPD-oxygen dependent, HTN, Alcohol/Tobacco abuse. She reports that the shortness of breath started last night. She was not feeling well. Chest pain was across her chest. She got worse this am with worsening shortness of breath. She felt that she could not breath. She is using 2 l/min oxygen at home. She called EMS. EMS noted atrial flutter. She was given Solumedrol, Albuterol and Cardizem in the field. In the ER her rate was still high. It was as high as 150s. She was given more Cardizem in the ER. She was started on BIPAP. CXR showed severe COPD. No infiltrate noted. Lab showed NA-131, K-3.9, CK-49, CKMB-5.4, and Trop 0.05. BNP elevated at 1580 and procal of 0.07. I was asked to admit the patient to the ICU for further care. When I saw the patient she was in serious condition. Adjustments to BIPAP made a slight improvement in the ER. She admits to smoking and drinking about 4 beers daily. She is taking her medication. She has noted a cough with congestion. She remains stable. I have spoken to cardiology and pulmonary concerning her admission. She will get a central line placed. She will start Lovenox for atrial flutter, Amiodarone for atrial flutter, IV steroid/BIPAP/ breathing treatments to Hospital Course: Overall during the hospital stay patient remained stable The patient was initially admitted to the hospital for shortness of breath and palpitations. Patient's dyspnea was most likely secondary to COPD versus CHF exacerbation. Cardiology and pulmonology was consulted. Patient was also found to have atrial fibrillation with RVR upon admission. For patient's AFib with RVR patient was initially started on amiodarone drip. Anti coagulation. Plan was to initially cardiovert the patient however after talking to patient's lens polisher the decision was made that the patient to remain on amiodarone drip and have a better control of her COPD which was making her AFib worse in the 1st place. Once patient COPD was control patient converted back to sinus rhythm and thus was switched over to p.o. amiodarone. For patient's COPD exacerbation patient remained on albuterol, ipratropium, brovana, dailyresp, steroids while here in the hospital. Patient does have end- stage COPD with oxygen dependent. Patient initially was placed on BiPAP due to hypercapnic respiratory distress. And was weaned off successfully. Patient then was educated extensively on her disease process and a reversible lung condition. Patient was notified about possibility of hospice care and agreed with hospice care planning and thus was discharged home with hospice care with [facility]. For patient's CHF exacerbation. Patient was initially started on IV lasix and was switched over to p.o. Lasix. Patient had marked improvement in her shortness of breath and thus was discharged home under stable condition. The patient is discharged home today under hospice care with [facility]. Patient will help equipment delivered to her house along with oxygen before her discharge home. Vital Signs/Physical Exam: Temp Pulse Resp BP Pulse Ox 98.3 F 58 24 H 170/81 H 96 05/05/18 08:00 05/05/18 08:42 05/05/18 08:00 05/05/18 08:42 05/05/18 08:00 General: Alert, In no apparent distress, Oriented x3 HEENT: Atraumatic, PERRLA, EOMI Neck: Supple, JVD not distended Respiratory: Normal air movement, Expiratory wheezes, Inspiratory wheezes Cardiovascular: Regular rate/rhythm, Normal S1 S2 Gastrointestinal: Normal bowel sounds, No tenderness Musculoskeletal: No tenderness Integumentary: No rashes Neurological: Normal speech, Normal tone, Normal affect Lymphatics: No axilla or inguinal lymphadenopathy Laboratory Data at Discharge: WBC 15.8 K/uL (4.3-10.9) H D 05/03/18 12:12 Hgb 14.6 g/dL (12.0-15.0) 05/03/18 12:12 Hct 42.8 % (36.0-45.0) 05/03/18 12:12 Plt Count 233 K/uL (152-406) 05/03/18 12:12 Sodium 128 mmol/L (136-145) L 05/05/18 04:45 Potassium 3.9 mmol/L (3.5-5.1) 05/05/18 04:45 BUN 27 mg/dL (7-18) H 05/05/18 04:45 Creatinine 0.50 mg/dL (0.55-1.3) L 05/05/18 04:45 Glucose 100 mg/dL (74-106) 05/05/18 04:45 Magnesium 1.9 mg/dL (1.8-2.4) 05/03/18 04:34 Troponin I 0.04 ng/mL (0.0-0.045) 04/29/18 15:15 Triglycerides 88 mg/dL (<150) 04/28/18 04:50 Cholesterol 197 mg/dL (<200) 04/28/18 04:50 HDL Cholesterol 95 mg/dL (40-60) H 04/28/18 04:50 Cholesterol/HDL Ratio 2.07 04/28/18 04:50 Home Medications: Roflumilast [Daliresp*] 500 mcg PO DAILY 11/10/14 Tiotropium [Spiriva Handihaler*] 18 mcg IH DAILY 11/10/14 Albuterol Sulfate [Proventil Hfa] 2 puff IH Q4HP PRN 11/10/16 Budesonide/Formoterol Fumarate [Symbicort 160-4.5 Mcg Inhaler] 2 puff IH BID predniSONE [Deltasone*] 10 mg PO BID #20 tab 05/10/17 Loratadine [Claritin*] 10 mg PO DAILY 04/27/18 Spironolactone [Aldactone*] 25 mg PO DAILY 04/27/18 Methocarbamol [Robaxin-750] 750 mg PO DAILY PRN 05/02/18 Amiodarone HCl [Pacerone] 200 mg PO DAILY #30 tablet 05/04/18 Amiodarone HCl [Pacerone] 400 mg PO BID #12 tablet 05/04/18 Apixaban [Eliquis] 5 mg PO BID #30 tablet 05/04/18 Arformoterol Tartrate [Brovana] 15 mcg NEB BIDRESP #1 vial.neb 05/05/18 Furosemide [Lasix*] 40 mg PO DAILY #30 tab 05/05/18 predniSONE [Deltasone*] 10 mg PO BID #30 tab 05/05/18 New Medications: Amiodarone HCl [Pacerone] 200 mg PO DAILY #30 tablet Amiodarone HCl [Pacerone] 400 mg PO BID #12 tablet Apixaban [Eliquis] 5 mg PO BID #30 tablet Arformoterol Tartrate [Brovana] 15 mcg NEB BIDRESP #1 vial.neb Furosemide [Lasix*] 40 mg PO DAILY #30 tab predniSONE [Deltasone*] 10 mg PO BID #30 tab Diet: Regular Activity: Ad tiffanie Followup: Jose Manuel Abebe MD [ACTIVE - CAN ADMIT] - 1-2 Weeks (Follow up in 2 weeks, call to schedule an appointment.)
[2018-05-05 12:48] VITALS: TEMP 98.7
[2018-05-05 16:57] VITALS: BP 167/77
== END 2018-05-05 19:31 | disposition hospice, home (50) | DRG 189 ==
LOC: ER 10:27 → ERHOLD 12:38 → 3RD-ICU 14:08 → 4TH 05-02 22:15
PROVIDERS: ADMIT Family Medicine; ATTEND Family Medicine
PROC: 5A09557 Assistance with Respiratory Ventilation, Greater than 96 Consecutive Hours, Continuous Positive Airway Pressure (ICD-10-PCS; principal; 2018-04-27)
PROC: 06HM33Z Insertion of Infusion Device into Right Femoral Vein, Percutaneous Approach (ICD-10-PCS; 2018-04-27)
DX: J96.22 Acute and chronic respiratory failure with hypercapnia (principal); I50.33 Acute on chronic diastolic (congestive) heart failure; J44.1 Chronic obstructive pulmonary disease with (acute) exacerbation; I48.92 Unspecified atrial flutter; E87.1 Hypo-osmolality and hyponatremia; J96.21 Acute and chronic respiratory failure with hypoxia; I11.0 Hypertensive heart disease with heart failure; I48.91 Unspecified atrial fibrillation; K21.9 Gastro-esophageal reflux disease without esophagitis; F10.10 Alcohol abuse, uncomplicated; R74.8 Abnormal levels of other serum enzymes; F17.210 Nicotine dependence, cigarettes, uncomplicated; Z51.5 Encounter for palliative care; Z85.038 Personal history of other malignant neoplasm of large intestine; Z99.81 Dependence on supplemental oxygen; Z79.52 Long term (current) use of systemic steroids; Z88.1 Allergy status to other antibiotic agents; Z88.0 Allergy status to penicillin
CPT/HCPCS: 36415; 51702; 71045; 80048; 80061; 80307; 80320; 81003; 81015; 82550; 82553; 82805; 83735; 83880; 84132; 84145; 84439; 84443; 84484; 85025; 87040; 93005; 93306; 94660; 94760; 97163; 99285; C9113; J0282; J0360; J1650; J1940; J2405; J2930; J3411; J3475; J7060; J7512; J7605

== ENCOUNTER 2018-05-09 20:59 | Emergency (ER) | payer OTHER ==
--- OUTSIDE RECORDS SUMMARY | 2018-05-09 21:01 | XMS REPORT | Clinical Summary ---
:1950 Author Organization [facility] Address [address] [place] [address] Care Team Providers Name Role Phone Levon [...] INFLUENZA VACCINE 04/17/2018 Results Not on fileafter 05/08/2017 Insurance Payer Benefit Plan / Group Subscriber ID Type Phone Address AETNA AETNA HMO,POS,EPO, MC/EC xxxxxxxxxx HMO
--- OUTSIDE RECORDS SUMMARY | 2018-05-09 21:01 | XMS REPORT | Continuity of Care Document ---
:1950 Author Organization Interface Problems Problem Status Onset Classification Date Comments Source Date Reported Rectal Active 04/01/20 Problem 08/26/2017 Data Medical polyp<sup>1</zhang 15 migrated Group p> from [employer] on 04/21/15. UNK Active 03/29/20 [facility] [place] 787.99 Active 03/29/[address] Smoking Active 03/26/20 Problem 08/26/2017 Data Medical cessation 15 migrated Group education<sup>2 from [employer] </sup> Centricity on 04/21/15. Asthma Resolved Problem 08/26/2017 Medical Group COPD Active Problem 08/26/2017 Medical Group,[facility] Degenerative Active Problem 08/26/2017 Medical disc disease Group,[facility] Hypertension Active Problem 08/26/2017 Medical Group,[facility] Rectal mass Active Problem 08/26/2017 Medical Group,[facility] DIGESTVE SYST Active SYMP NEC [facility] Medications Medication Details Route Status Patient Ordering [...] 325 MG / PO, Drug Form: 2014 [facility] Hydrocodone TAB, kg, Q6H, Bitartrate 10 MG PRN Pain, Start Oral Tablet date: 04/02/15 [[place] 10325] 14:06:00, Duration: 30 day, Stop date: 05/02/15 14:05:00 Ofirmev 1,000 mg, Route: Inactive IV, Drug form: 2014 [facility] INJ, ONCE, kg, PRN Pain, for > or=50 kg, Start date: 04/02/15 14:06:00 Naloxone 0.04 mg, Route: Inactive IVP, Q2MIN, 2014 [facility] Dosing Weight 50, kg, PRN Narcotic Reversal, Start date: 04/02/15 14:06:00, Duration: 8 doses or times, Stop date: Limited # of times Fentanyl 50 microgram, Inactive Route: IVP, 2014 [facility] Q5Min, Dosing Weight 50, kg, PRN Pain Score 7-10, Start date: 04/02/15 14:06:00, Duration: 2 doses or times, Stop date: Limited # of times Ketorolac 30 mg, Route: Inactive IVP, ONCE, 2014 [facility] Dosing Weight 50, kg, Start date: 04/02/15 14:06:00, Duration: 1 doses or times, Stop date: 04/02/15 14:06:00 Flumazenil 0.2 mg, Route: Inactive IVP, PRN, Dosing 2014 [facility] Weight 50, kg, PRN Benzodiazepine Reversal, Initial dose, Start date: 04/02/15 14:06:00, Duration: 30 day, Stop date: 05/02/15 14:05:00 Ondansetron 4 mg, Route: Inactive IVP, ONCE, 2014 [facility] Dosing Weight 50, kg, PRN Nausea & Vomiting, Start date: 04/02/15 14:06:00 Hydromorphone 0.3 mg, 0.3 mL, No Longer Route: IVP, Drug Active 2014 [facility] form: INJ, Q3H, Dosing Weight 50, kg, PRN Pain Score 4-6, Start date: 04/02/15 13:37:00, Duration: 30 day, Stop date: 05/02/15 13:36:00 Calcium Chloride 500 mL, Rate: 25 Inactive 0.0014 MEQ/ML / ml/hr, Infuse 2014 [facility] Potassium over: 20 hr, Chloride 0.004 Route: [...] Refill(s) adapter tiotropium 0.018 18 microgram=1 Active 04/02[facility] MG/ACTUAT cap, INHALATION, 2014 [facility] Inhalant Powder Daily, Use two [Spiriva] inhalations of one capsule for each dose, # 90 cap, 1 Refill(s)Special Instructions: Use two inhalations of one capsule for each dose Flagyl 500 mg, 100 mL, Inactive Route: IVPB, 2014 [facility] Drug form: INJ, ONCE, kg, Start date: 04/02/15 9:25:00, Stop date: 04/02/15 9:25:00 Allergies, Adverse Reactions, Alerts Substance Category Reaction Severity Reaction Status Date Comments Source type Reported penicillins< Assertion Drug Active Data sup>1</sup> allergy 5 migrated Medical from [facility] on 04/16/15. Originally documented as PENICILLIN. macrolide Assertion Drug Active Data antibiotics< allergy 5 migrated Medical sup>2</sup> from [facility] on 04/16/15. Originally documented as MYCIN. tetracycline Assertion Drug Active Data s<sup>3</sup allergy 5 migrated Medical > from [facility] on 04/16/15. Originally documented as CYCLINES. cephalexin<s Assertion Drug Active Data up>4</sup> allergy 5 migrated Medical from [facility] on 04/17/15. Originally documented as KEFLEX. Keflex Assertion Drug Active allergy Medical Group E-Mycin Assertion Drug Active allergy [facility] penicillins Assertion Drug Active allergy [facility] tetracycline Assertion Drug Active s allergy [facility] Immunizations Immunization Date Given Site Status Last Updated Comments Source Results Order Name Results Value Reference Date Interpretation Comments Source Range CHEM PANEL Creatinine 0.7 mg/dL 0.5 - 1.4 04/02 [facility] CHEM PANEL Sodium Lvl 143 meq/L 135 - 145 04/02 [facility] CHEM PANEL Potassium 4.6 meq/L 3.5 - 5.1 04/02 [facility] CHEM PANEL eGFR 91 04/02 Result Comment: [...] is not recommended in the following populations: [facility] 3m2 Individuals with unstable creatinine concentrations, including [...] Lvl 8.9 mg/dL 8.5 - 10.5 04/02 [facility] CHEM PANEL Glucose Lvl 95 mg/dL 70 - 99 04/02 [facility] CHEM PANEL BUN 12 mg/dL 7 - 22 04/02 [facility] CHEM PANEL Chloride Lvl 105 meq/L 95 - 109 04/02 [facility] CHEM PANEL CO2 30 meq/L 24 - 32 04/02 [facility] CHEM PANEL AGAP 12.6 meq/L 10.0 - 04/[address] [facility] HEMATOLOGY Hct 45.8 % 36.0 - 04/[address] [facility] HEMATOLOGY Hgb 15.6 g/dL 12.0 - 04/[address] [facility] TUMOR CEA 12.5 ng/mL 0.0 - 3.0 04/[address] [facility] URINE AND UA <=1.0 0.1 - 1.0 04/02 [facility] Urobilinogen mg/dL /2014 [facility] URINE AND UA Color Ltyellow 04/[address] [facility] URINE AND UA pH 5.0 5.0 - 8.0 04/02 [facility] URINE AND UA Spec Grav 1.008 <=1.030 04/02 [facility] URINE AND UA Glucose Negative Negative 04/02 [facility] mg/dL mg/dL /2014 [facility] URINE AND UA Protein Negative Negative 04/02 [facility] mg/dL mg/dL /2014 [facility] URINE AND UA Turbidity Clear Clear 04/02 [facility] (04/02/15 9:34 AM) URINE AND UA WBC null 0 - 5 04/02 [facility] URINE AND UA Sq Epi Occasional Few /LPF 04/02 [facility] /LPF /2014 [facility] URINE AND UA RBC null 0 - 2 04/[address] [facility] URINE AND UA Ketones Negative Negative 04/02 [facility] mg/dL mg/dL /2014 [facility] URINE AND UA Blood Small Negative 04/[address] [facility] *ABN* (04/02/15 9:34 AM) URINE AND UA Bili Negative Negative 04/[address] [facility] *NA* (04/02/15 9:34 AM) URINE AND UA Leuk Est Negative Negative 04/[address] [facility] (04/02/15 9:34 AM) URINE AND UA Nitrite Negative Negative 04/[address] [facility] (04/02/15 9:34 AM) Vital Signs Vital Sign Value Date Comments Source Systolic (mm Hg) 118 04/02/2015 [facility] Diastolic (mm Hg) 49 04/02/2015 [facility] Systolic (mm Hg) 96 04/02/2015 [facility] Diastolic (mm Hg) 39 04/02/2015 [facility] Systolic (mm Hg) 114 04/02/2015 [facility] Diastolic (mm Hg) 47 04/02/2015 [facility] Respitory Rate 19 04/02/2015 [facility] Respitory Rate 18 04/02/2015 [facility] Respitory Rate 9 04/02/2015 [facility] Heart Rate 55 04/02/2015 [facility] Temperature Oral (F) 98.4 F 04/02/2015 [facility] Height 154.94 cm 04/02/2015 [facility] BMI Calculated 20.83 04/02/2015 [facility] Weight 50 04/02/2015 [facility] Encounters Location Location Encounter Encounter Reason Attending ADM DC Status Source Details Type Number For Provider Date Date Visit Outpatient [id number] [facility] 04/02 [facility] 1 VOLOYIANNIS [facility] OBS Day [id number] Theodoros 04/02 04/02 [facility] Surgery 0 Voloyiannis /2014 [facility] Outpatient [id number] THEODOROS 04/22 [facility]OYIANNIS [place] [facility] [id number] THEODOROS 07/30 [facility] 2 [facility]NIS [place] Out[facility] [id number] THEODOROS 10/21 [facility] 3 [facility]OYIANNIS [place] Out[facility] [id number] THEODOROS 11/18 [facility] 4 [facility]OYIANNIS [place] Out[facility] [id number] THEODOROS 02/24 [facility] 5 [facility]OLOYIAN [place] Out[facility] [id number] THEODOROS 07/18 [facility] 8 VOLOY [place] Out[facility] [id number] THEODOROS 08/18 [facility] 7 VOLOY [place] Out[facility] [id number] THEODOROS 08/18 [facility] 6 [facility] [id number] THEODOROS 08/23 Active [facility] 9 VOLOYIANNIS [facility] Ambulatory [id number] Nizar 08/23 08/23 Colorectal Pre-Reg 9 [facility] [place] Procedures Procedure Code Date Perfomer Comments Source Operation [id number] 04/02/2015 Medical Group Arthrotomy [id number] Medical Group Cataract surgery [id number] Medical Group Hysterectomy [id number] Medical Group Laparoscopic Kathryn [id number] Medical fundoplication using Group abdominal approach Tonsillectomy [id number] Medical [facility] Tubal ligation [id number] Medical Group Arthrotomy [id number] [facility] Hysterectomy [id number] [facility] Laparoscopic Kathryn [id number] [facility] fundoplication using abdominal approach Tonsillectomy [id number] [facility]
--- NOTE | 2018-05-09 22:11 | RAD REPORT ---
EXAM DESCRIPTION: CT - [id number] - 05/09/2018 9:48 pm CLINICAL HISTORY: Fall, head and neck injury COMPARISON: None. TECHNIQUE: Axial 5 mm thick images of the head were obtained. Axial 2 mm thick images of the cervic al spine were obtained with sagittal and coronal reconstruction images generated and reviewed. All CT scans are performed using dose optimization technique as appropriate and may include automated exposure control or mA/KV adjustment according to patient size. FINDINGS: No intracranial hemorrhage, mass, edema or acute intracranial finding. No suspicion for acute infarct ion. Atrophy and chronic ischemic changes are present. Ventricular size is in proportion to volume lo ss. Mastoid air cells are clear. Small air-fluid levels are present in the sphenoid sinus. There are no skullbase fractures are other findings to indicate traumatic etiology for the fluid. This is proba kimmy pre-existing sinusitis. No globe or orbit abnormality seen. Cervical bodies are normal in height. No fracture or acute cervical vertebral body finding. Patient h as significant facet degenerative change and uncovertebral joint hypertrophy. Significant C5-6 and C6 -7 disc space narrowing with posterior endplate spurring. Canal is borderline stenotic at these 2 lev els. Central canal detail is inherently limited. No paraspinal mass or hematoma. IMPRESSION: Atrophy and chronic ischemic changes are present. No acute intracranial finding. Air-fluid levels in the sphenoid sinus are believed to be related to preexisting sinusitis rather nasra n trauma etiology. Cervical spine degenerative change with no acute finding.
--- NOTE | 2018-05-09 22:18 | RAD REPORT ---
EXAM DESCRIPTION: RAD - Shoulder Left 2 View - 05/09/2018 9:32 pm CLINICAL HISTORY: Fall, shoulder pain COMPARISON: None. TECHNIQUE: Internal and external rotation views of the left shoulder were obtained. FINDINGS: There is no fracture or dislocation. AC joint is normal in appearance. No acute or suspici ous findings. IMPRESSION: Negative two-view left shoulder examination.
--- NOTE | 2018-05-09 22:20 | RAD REPORT ---
EXAM DESCRIPTION: RAD - Chest Single View - 05/09/2018 9:32 pm CLINICAL HISTORY: Fall, chest pain COMPARISON: April 29 TECHNIQUE: AP portable chest image was obtained 2126 hours . FINDINGS: No pulmonary contusion, mass or acute lung parenchymal process. Prominent costochondral ca lcifications are present. Interstitial markings are prominent but not clearly different. Heart and va sculature are normal. No measurable pleural effusion and no pneumothorax. No gross bony abnormality s een. No acute aortic findings suspected. IMPRESSION: Chronic interstitial lung disease is present not clearly different from comparison. No pulmonary contusion, pneumothorax or traumatic injury to the chest identifiable.
--- NOTE | 2018-05-09 22:21 | RAD REPORT ---
EXAM DESCRIPTION: RAD - Pelvis - 05/09/2018 9:32 pm CLINICAL HISTORY: Fall, pelvic pain COMPARISON: None. TECHNIQUE: AP imaging of the pelvis was obtained. FINDINGS: No fracture of the bony pelvis. No fracture or dislocation of either proximal femur. No pa thologic bone process. No suspicious soft tissue finding. IMPRESSION: Negative pelvis for acute finding
--- NOTE | 2018-05-09 22:22 | RAD REPORT ---
EXAM DESCRIPTION: RAD - Wrist Left 3 View - 05/09/2018 9:39 pm CLINICAL HISTORY: Fall, wrist pain COMPARISON: None. FINDINGS: No fracture is identified. There is no dislocation or periosteal reaction noted. Mild for age degenerative change present at the first carpal - metacarpal articulation. No air or foreign bod y in the soft tissues. IMPRESSION: No fracture or acute finding identifiable.
--- NOTE | 2018-05-09 22:42 | EDPHYS ---
Physician Documentation [facility] Name: Julia Andrews Age: 68 yrs Sex: Female : 1950 Arrival Date: 05/09/2018 Time: 21:06 Bed 4 Private MD: ED Physician Rico Guzman HPI: 05/10 00:37 This 68 yrs old Female presents to ER via EMS with complaints of Fall Injury. jr8 00:37 Details of fall: The patient fell from an upright position, while standing. Onset: The jr8 symptoms/episode began/occurred acutely, today. Associated injuries: The patient sustained injury to the head, neck injury, left shoulder. Severity of symptoms: At their worst the symptoms were mild, in the emergency department the symptoms are unchanged. The patient has not experienced similar symptoms in the past. The patient has not recently seen a physician. Patient stated that she fell tripping over her oxygen hose. Denies LOC. Complains of head pain and shoulder pain . Historical: - Allergies: 05/09 21:25 Cephalexin Monohydrate; fc 21:25 erythromycin base; fc 21:25 Keflex; fc 21:25 PENICILLINS; fc 21:25 TETRACYCLINES; fc - Home Meds: 21:25 Morphine 20 mg/ml Oral .5 mL q1hr prn [Active]; lorazepam 0.5 mg Oral tab 1 tab q 2hrs fc prn [Active]; hyoscyamine sulfate 0.125 mg oral tab 1 tab q 4hrs prn [Active]; tylenol 650 mg supp q4hrs prn [Active]; Promethazine 25 mg po/SL/SC Oral q4hrs prn [Active]; bisacodyl 10 mg Rectal supp 1 suppository q day prn [Active]; amiodarone 200 mg Oral tab 1 tab once daily [Active]; Eliquis 5 mg oral tab 1 tab daily [Active]; Brovana 15 mcg/2 mL inhalation nebu 2 times per day [Active]; Lasix 40 mg Oral tab 1 tab once daily [Active]; prednisone 10 mg Oral tab 2 times per day [Active]; albuterol sulfate 90 mcg/actuation Inhl HFAA 2 puffs q4hrs prn [Active]; Symbicort 160-4.5 mcg/actuation inhalation HFAA 2 puffs 2 times per day [Active]; Claritin 10 mg Oral tab 1 tab once daily [Active]; methocarbamol 750 mg Oral tab 1 tab daily prn [Active]; Daliresp 500 mcg Oral tab 1 tab once daily [Active]; spironolactone 25 mg Oral tab 1 tab once daily [Active]; - PMHx: 21:25 COPD; Hypertension; Atrial Fib; Osteoporosis; fc - Immunization history: Last tetanus immunization: - up to date. - Social history:: Smoking status: Patient uses tobacco products, just quit a couple of weeks ago. - Ebola Screening: : Patient negative for fever greater than or equal to 101.5 degrees Fahrenheit, and additional compatible Ebola Virus Disease symptoms Patient denies exposure to infectious person Patient denies travel to an Ebola-affected area in the 21 days before illness onset. ROS: 05/10 00:37 Eyes: Negative for injury, pain, redness, and discharge, ENT: Negative for injury, jr8 pain, and discharge, Neck: Negative for injury, pain, and swelling, Cardiovascular: Negative for chest pain, palpitations, and edema, Respiratory: Negative for shortness of breath, cough, wheezing, and pleuritic chest pain, Abdomen/GI: Negative for abdominal pain, nausea, vomiting, diarrhea, and constipation, Back: Negative for injury and pain, Neuro: Negative for headache, weakness, numbness, tingling, and seizure. MS/extremity: Positive for pain, tenderness, of the left shoulder. Skin: Positive for avulsion, of the left milian and left arm. Exam: 00:37 Head/Face: Normocephalic, atraumatic. Eyes: Pupils equal round and reactive to light, jr8 extra-ocular motions intact. Lids and lashes normal. Conjunctiva and sclera are non-icteric and not injected. Cornea within normal limits. Periorbital areas with no swelling, redness, or edema. ENT: Nares patent. No nasal discharge, no septal abnormalities noted. Tympanic membranes are normal and external auditory canals are clear. Oropharynx with no redness, swelling, or masses, exudates, or evidence of obstruction, uvula midline. Mucous membranes moist. Neck: Trachea midline, no thyromegaly or masses palpated, and no cervical lymphadenopathy. Supple, full range of motion without nuchal rigidity, or vertebral point tenderness. No Meningismus. Cardiovascular: Regular rate and rhythm with a normal S1 and S2. No gallops, murmurs, or rubs. Normal PMI, no JVD. No pulse deficits. Respiratory: Lungs have equal breath sounds bilaterally, clear to auscultation and percussion. No rales, rhonchi or wheezes noted. No increased work of breathing, no retractions or nasal flaring. Abdomen/GI: Soft, non-tender, with normal bowel sounds. No distension or tympany. No guarding or rebound. No evidence of tenderness throughout. Back: No spinal tenderness. No costovertebral tenderness. Full range of motion. Neuro: Awake and alert, GCS 15, oriented to person, place, time, and situation. Cranial nerves II-XII grossly intact. Motor strength 5/5 in all extremities. Sensory grossly intact. Cerebellar exam normal. Normal gait. 00:37 Musculoskeletal/extremity: Extremities: grossly normal except: noted in the left shoulder: pain, tenderness, ROM: intact in all extremities, Circulation is intact in all extremities. Sensation intact. 00:37 Skin: large skin avulsion noted to dorsal left arm, Small avulsion's to ventral left wrist and left knee. Vital Signs: 05/09 21:00 BP 147 / 63; Pulse 62; Resp 24; Temp 98.7(O); Pulse Ox 90% on R/A; Weight 33.11 kg (R); fc Height 5 ft. 0 in. (152.40 cm) (R); Pain 5/10; 21:59 BP 150 / 57; Pulse 60; Resp 19 S; Pulse Ox 97% on 2 lpm NC; jd3 23:25 BP 151 / 81; Pulse 61; Resp 16 S; Pulse Ox 96% on 2 lpm NC; jd3 21:00 Body Mass Index 14.26 (33.11 kg, 152.40 cm) fc Leming Coma Score: 21:00 Eye Response: spontaneous(4). Verbal Response: oriented(5). Motor Response: obeys commands(6). Total: 15. Trauma Score (Adult): 21:00 Eye Response: spontaneous(1); Verbal Response: oriented(1); Motor Response: obeys commands(2); Systolic BP: > 89 mm Hg(4); Respiratory Rate: 10 to 29 per min(4); Leming Score: 15; Trauma Score: 12 MDM: 21:15 Patient medically screened. jr8 22:40 Data reviewed: vital signs, nurses notes, radiologic studies, CT scan, plain films, and jr8 as a result, I will discharge patient. Data interpreted: Pulse oximetry: on room air is 97 %. Interpretation: normal. Counseling: I had a detailed discussion with the patient and/or guardian regarding: the historical points, exam findings, and any diagnostic results supporting the discharge/admit diagnosis, radiology results, the need for outpatient follow up, a family practitioner, to return to the emergency department if symptoms worsen or persist or if there are any questions or concerns that arise at home. 05/09 21:15 Order name: XRAY Chest (1 view); Complete Time: 22:39 jr8 05/09 21:15 Order name: XRAY Pelvis; Complete Time: 22:39 jr8 05/09 21:15 Order name: XRAY Shoulder LEFT 2 view; Complete Time: 22:39 jr8 05/09 21:15 Order name: CT Head C Spine; Complete Time: 22:39 jr8 05/09 21:17 Order name: XRAY Wrist LEFT 3 view; Complete Time: 22:39 jr8 Administered Medications: 23:08 Drug: fentaNYL (PF) 50 mcg Route: IVP; Site: right antecubital; jd3 23:29 Follow up: Response: No adverse reaction; Medication administered at discharge. jd3 23:08 Drug: Zofran 4 mg Route: IVP; Site: right antecubital; jd3 23:29 Follow up: Response: No adverse reaction; Medication administered at discharge. jd3 Disposition: 05/09/18 22:41 Discharged to Home. Impression: Avulsion of skin, Contusion of left shoulder, Superficial injury of head. - Condition is Stable. - Discharge Instructions: Head Injury, Adult, Shoulder Pain, Skin Tear Care. - Prescriptions for Cipro 500 mg Oral Tablet - take 1 tablet by ORAL route every 12 hours for 5 days; 10 tablet. - SBAR form, Medication Reconciliation Form, Thank You Letter, Antibiotic Education, Prescription Opioid Use form. - Follow up: Private Physician; When: 2 - 3 days; Reason: Recheck today's complaints, Continuance of care, Re-evaluation by your physician. - Problem is new. - Symptoms have improved. Addendum: 05/13/2018 17:36 Co-signature as Attending Physician, Rico Guzman MD. g s Signatures: Dispatcher [employer] EDMS Nell Iglesias RN RN Juan Carpio PA PA jr8 Rico Guzman MD MD Carlin Mayorga RN RN jd3 Corrections: (The following items were deleted from the chart) 05/09 23:33 22:41 05/09/2018 22:41 Discharged to Home. Impression: Avulsion of skin; Contusion of jd3 left shoulder; Superficial injury of head. Condition is Stable. Forms are Medication Reconciliation Form, Thank You Letter, Antibiotic Education, Prescription Opioid Use. Follow up: Private Physician; When: 2 - 3 days; Reason: Recheck today's complaints, Continuance of care, Re-evaluation by your physician. Problem is new. Symptoms have improved. jr8
--- NOTE | 2018-05-09 22:42 | ER ---
Nurse's Notes [facility] Name: Julia Andrews Age: 68 yrs Sex: Female : 1950 Arrival Date: 05/09/2018 Time: 21:06 Bed 4 Private MD: Diagnosis: Avulsion of skin;Contusion of left shoulder;Superficial injury of head Presentation: 05/09 21:00 Acuity: ROXANNA 2 fc 21:00 Method Of Arrival: EMS: [facility] 21:00 Presenting complaint: Patient states: That she was attempting to get up and tripped on fc her O2 tubing. Pt has severe pain to left shoulder. Negative LOC. Has skin tears to left wrist, left leg and right hand. Pt was just discharged to hospice this past Sunday for COPD. Care prior to arrival: Bleeding of injury controlled. Injury dressed. Medication(s) given: Fentanyl 25 mcg ivp IV initiated. 22 GA, in the right antecubital area, Glucose check: 112. Mechanism of Injury: Fall from standing position. Trauma event details: Injury occurred in the [facility], Injury occurred: at home. Injury occurred: May 09, 2018 Injury occurred at: 20:30. 21:12 Transition of care: patient was not received from another setting of care. Onset of fc symptoms was May 09, 2018 at 20:30. Risk Assessment: Do you want to hurt yourself or someone else? Patient reports no desire to harm self or others. Initial Sepsis Screen: Does the patient meet any 2 criteria? RR > 20 per min. Yes Does the patient have a suspected source of infection? No. Patient's initial sepsis screen is negative. Trauma Activation: Alert Physician: ED Physician; Name: Daksha; Notified At: 20:59; Arrived At: 20:59 Physician: General Surgeon; Name: ; Notified At: 20:59; Arrived At: Physician: Radiology; Name: Aryan Ortega; Notified At: 20:59; Arrived At: 20:59 Physician: Respiratory; Name: Griselda; Notified At: 20:59; Arrived At: 20:59 Physician: Lab; Name: ; Notified At: 20:59; Arrived At: Historical: - Allergies: 21:25 Cephalexin Monohydrate; fc 21:25 erythromycin base; fc 21:25 Keflex; fc 21:25 PENICILLINS; fc 21:25 TETRACYCLINES; fc - Home Meds: 21:25 Morphine 20 mg/ml Oral .5 mL q1hr prn [Active]; lorazepam 0.5 mg Oral tab 1 tab q 2hrs fc prn [Active]; hyoscyamine sulfate 0.125 mg oral tab 1 tab q 4hrs prn [Active]; tylenol 650 mg supp q4hrs prn [Active]; Promethazine 25 mg po/SL/WA Oral q4hrs prn [Active]; bisacodyl 10 mg Rectal supp 1 suppository q day prn [Active]; amiodarone 200 mg Oral tab 1 tab once daily [Active]; Eliquis 5 mg oral tab 1 tab daily [Active]; Brovana 15 mcg/2 mL inhalation nebu 2 times per day [Active]; Lasix 40 mg Oral tab 1 tab once daily [Active]; prednisone 10 mg Oral tab 2 times per day [Active]; albuterol sulfate 90 mcg/actuation Inhl HFAA 2 puffs q4hrs prn [Active]; Symbicort 160-4.5 mcg/actuation inhalation HFAA 2 puffs 2 times per day [Active]; Claritin 10 mg Oral tab 1 tab once daily [Active]; methocarbamol 750 mg Oral tab 1 tab daily prn [Active]; Daliresp 500 mcg Oral tab 1 tab once daily [Active]; spironolactone 25 mg Oral tab 1 tab once daily [Active]; - PMHx: 21:25 COPD; Hypertension; Atrial Fib; Osteoporosis; fc - Immunization history: Last tetanus immunization: - up to date. - Social history:: Smoking status: Patient uses tobacco products, just quit a couple of weeks ago. - Ebola Screening: : Patient negative for fever greater than or equal to 101.5 degrees Fahrenheit, and additional compatible Ebola Virus Disease symptoms Patient denies exposure to infectious person Patient denies travel to an Ebola-affected area in the 21 days before illness onset. Screenin:00 Abuse screen: Denies threats or abuse. Tuberculosis screening: No symptoms or risk fc factors identified. 21:13 Nutritional screening: No deficits noted. Fall Risk Fall in past 12 months (25 points). fc Secondary diagnosis (15 points) impaired mobility, IV access (20 points). Ambulatory Aid- Crutches/Cane/Walker (15 pts). Gait- Weak (10 pts.). Mental Status- Overestimates/Forgets Limitations (15 pts.). Total Carroll Fall Scale indicates High Risk Score (45 or more points). Fall prevention measures have been instituted. Side Rails Up X 2 Placed Close to Nursing Station 1:1 Attendant Assigned Frequent Obs/Assessments Occuring As available patient and family educated on Fall Prevention Program and Strategies. Primary Survey: 21:07 A: Airway: patent, Oxygen via nasal cannula at 2 liters per minute. Oral cavity: clear, jd3 Trachea midline. Breathing/Chest: Respiratory pattern: regular, Respiratory effort: spontaneous, Breath sounds: clear, bilaterally. Chest inspection: symmetrical rise and fall of the chest. Circulation: Heart tones present. Skin color: pink, Skin temperature: warm. Disability Alert. 23:25 Reassessment Airway Airway Patent Breathing/Chest Respiratory pattern Regular jd3 Respiratory effort Spontaneous Breath sounds Clear Chest inspection Symmetrical. Secondary Survey: 21:09 HEENT: Head Other >2.5 cm laceration noted to left brow. Eyes: No injury or deformity jd3 noted. to bilateral eyes. Ears: clear bilaterally. Nose: clear to bilateral nares. Gastrointestinal: Abdomen is soft, flat, Bowel sounds present in all quadrants. Palpation No deficit noted. : No signs and/or symptoms were reported regarding the genitourinary system. Musculoskeletal: Range of motion: limited in left shoulder. Assessment: 21:11 General: Appears uncomfortable, Behavior is calm, cooperative, appropriate for age. jd3 Pain: Complains of pain in head and anterior aspect of left shoulder Pain currently is 10 out of 10 on a pain scale. Quality of pain is described as sharp. Neuro: Level of Consciousness is awake, alert, obeys commands, Oriented to person, place, time, situation, Appropriate for age Pupils are PERRLA. EENT: No signs and/or symptoms were reported regarding the EENT system. Cardiovascular: Heart tones S1 S2 present Capillary refill < 3 seconds Patient's skin is warm and dry. Respiratory: Airway is patent Respiratory effort is even, unlabored, Respiratory pattern is regular, symmetrical, Breath sounds are clear bilaterally. GI: Abdomen is flat, Bowel sounds present X 4 quads. Abd is soft and non tender X 4 quads. : No signs and/or symptoms were reported regarding the genitourinary system. Derm: Skin is intact, Skin is dry, Skin is normal, Skin temperature is warm Wound noted right hand, dorsal aspect of left forearm and left milian and outer aspect of left eyebrow Wound is >2.5 cm laceration noted to left eye brow. skin tares noted to left forearm and left leg. abrasion noted to right hand. Musculoskeletal: Circulation, motion, and sensation intact. Range of motion: limited in left shoulder. 22:30 Reassessment: Patient appears in no apparent distress at this time. Patient and/or jd3 family updated on plan of care and expected duration. Pain level reassessed. Patient is alert, oriented x 3, equal unlabored respirations, skin warm/dry/pink. 23:30 Reassessment: Patient appears in no apparent distress at this time. Patient and/or jd3 family updated on plan of care and expected duration. Pain level reassessed. Patient is alert, oriented x 3, equal unlabored respirations, skin warm/dry/pink. Patient states feeling better. Vital Signs: 21:00 BP 147 / 63; Pulse 62; Resp 24; Temp 98.7(O); Pulse Ox 90% on R/A; Weight 33.11 kg (R); fc Height 5 ft. 0 in. (152.40 cm) (R); Pain 5/10; 21:59 BP 150 / 57; Pulse 60; Resp 19 S; Pulse Ox 97% on 2 lpm NC; jd3 23:25 BP 151 / 81; Pulse 61; Resp 16 S; Pulse Ox 96% on 2 lpm NC; jd3 21:00 Body Mass Index 14.26 (33.11 kg, 152.40 cm) fc Sobeida Coma Score: 21:00 Eye Response: spontaneous(4). Verbal Response: oriented(5). Motor Response: obeys fc commands(6). Total: 15. Trauma Score (Adult): 21:00 Eye Response: spontaneous(1); Verbal Response: oriented(1); Motor Response: obeys fc commands(2); Systolic BP: > 89 mm Hg(4); Respiratory Rate: 10 to 29 per min(4); Sobeida Score: 15; Trauma Score: 12 ED Course: 21:00 Patient has correct armband on for positive identification. Bed in low position. Call light in reach. Side rails up X2. 21:00 Arm band placed on Patient placed in an exam room, on a stretcher. fc 21:04 Oxygen administration via nasal cannula \T\ 2L/min Response to oxygen therapy: symptoms fc improved. 21:05 Thermoregulation: warm blanket given to patient. fc 21:06 Patient arrived in ED. fc 21:06 Carlin Mayorga RN is Primary Nurse. jd3 21:09 Juan Holliday PA is PHCP. jr8 21:09 Rico Guzman MD is Attending Physician. jr8 21:10 Triage completed. fc 21:13 Maintain EMS IV. Dressing intact. Good blood return noted. Site clean \T\ dry. Gauge \T\ fc site: 22 gauge to right a/c. 21:29 X-ray completed. Portable x-ray completed in exam room. Patient tolerated procedure kw well. 21:32 XRAY Chest (1 view) In Process Unspecified. EDMS 21:32 XRAY Pelvis In Process Unspecified. EDMS 21:32 XRAY Shoulder LEFT 2 view In Process Unspecified. EDMS 21:32 XRAY Wrist LEFT 3 view In Process Unspecified. EDMS 21:48 CT completed. Patient tolerated procedure well. Patient moved back from CT. nj 21:48 CT Head C Spine In Process Unspecified. EDMS 23:10 Dressings: Band aid non-adherent dressing Steri strips. jd3 23:25 No provider procedures requiring assistance completed. IV discontinued, intact, jd3 bleeding controlled, No redness/swelling at site. Pressure dressing applied. Administered Medications: 23:08 Drug: fentaNYL (PF) 50 mcg Route: IVP; Site: right antecubital; jd3 23:29 Follow up: Response: No adverse reaction; Medication administered at discharge. jd3 23:08 Drug: Zofran 4 mg Route: IVP; Site: right antecubital; jd3 23:29 Follow up: Response: No adverse reaction; Medication administered at discharge. jd3 Intake: 23:32 PO: 0ml; Total: 0ml. jd3 Output: 23:32 Urine: 0ml; Total: 0ml. jd3 Outcome: 22:41 Discharge ordered by MD. emmanuel 23:31 Discharged to home via ambulance. jd3 23:31 Condition: stable 23:31 Discharge instructions given to patient, Instructed on discharge instructions, follow up and referral plans. medication usage, Demonstrated understanding of instructions, follow-up care, medications, Prescriptions given X 1. 23:32 Patient's length of stay in the Emergency Department was greater than 2 hours. waiting jd3 on radiology.Patient's length of stay extended due to 23:33 Patient left the ED. jd3 Signatures: Dispatcher [employer] EDMS Nell Iglesias, RN RN Yolanda Michael Josh, PA PA jr8 Jewel Mccann Jonathon, RN RN jd3 Corrections: (The following items were deleted from the chart) 21:18 21:11 Derm: Skin is intact, Skin is dry, Skin is normal, Skin temperature is warm Wound jd3 noted outer aspect of left eyebrow Wound is >2.5 cm laceration noted to left eye brow. jd3 22:02 21:59 BP 150 / 57; Pulse 60bpm; Resp 19bpm; Spontaneous; Pulse Ox 97% RA; jd3 jd3
[2018-05-09] MEDS ORDERED: ONDANSETRON 4 MG/2 ML VIAL ONE (23:13)
[2018-05-09] MEDS ORDERED: FENTANYL CITR 100 MCG/2 ML ONE (23:13)
[2018-05-09 23:37] VITALS: TEMP 98.7
[2018-05-09 23:39] VITALS: BP 151/81; O2SAT 96
== END 2018-05-09 23:33 | disposition home or self-care (01) ==
LOC: ER 20:59
DX: S00.90XA Unspecified superficial injury of unspecified part of head, initial encounter (principal); S41.102A Unspecified open wound of left upper arm, initial encounter; S40.012A Contusion of left shoulder, initial encounter; W01.198A Fall on same level from slipping, tripping and stumbling with subsequent striking against other object, initial encounter; Y93.01 Activity, walking, marching and hiking; Y92.9 Unspecified place or not applicable; Z79.01 Long term (current) use of anticoagulants; Z88.0 Allergy status to penicillin; Z88.1 Allergy status to other antibiotic agents; Z88.3 Allergy status to other anti-infective agents; Z88.8 Allergy status to other drugs, medicaments and biological substances; Z87.891 Personal history of nicotine dependence; I10 Essential (primary) hypertension; J44.9 Chronic obstructive pulmonary disease, unspecified; I48.91 Unspecified atrial fibrillation
CPT/HCPCS: 70450; 71045; 72125; 72170; 73030; 73110; 96374; 96375; 99285; J2405; J3010